=== PATIENT | female | born 1960 | race African-American/Black ===

== ENCOUNTER 2017-03-07 11:12 | Emergency (ER) | payer MEDICAID ==
[~2017-03-07] VITALS: Ht 162.6 cm; Wt 122.7 kg
[~2017-03-07 11:12] MED LIST: AZIT250T9 PO; PRED20 PO; [UNRECOGNIZED DRUG - REMARK] IH
[2017-03-07] MEDS ORDERED: HYDROCODONE/ACETAMINOPHEN 5-325 MG TABLET PO ONE (15:00)
[2017-03-07 15:30] VITALS: BP 138/85
== END 2017-03-07 16:08 | disposition home or self-care (01) ==
LOC: EMS 11:13
DX: M25.562 Pain in left knee (principal); M79.662 Pain in left lower leg; M79.89 Other specified soft tissue disorders; M19.90 Unspecified osteoarthritis, unspecified site; J45.909 Unspecified asthma, uncomplicated; F17.210 Nicotine dependence, cigarettes, uncomplicated; Z88.8 Allergy status to other drugs, medicaments and biological substances; Z91.040 Latex allergy status
CPT/HCPCS: 29505; 93971; 99284

== ENCOUNTER 2017-04-29 10:01 | Emergency (ER) | payer MEDICAID ==
[~2017-04-29] VITALS: Ht 162.6 cm; Wt 120.0 kg
[2017-04-29] MEDS ORDERED: ALBU8HFA IH (10:35)
[2017-04-29 12:49] LABS: INFLUENZA TYPE A NEGATIVE FOR TYPE A (NEGATIVE)
[2017-04-29 12:50] LABS: INFLUENZA TYPE B NEGATIVE FOR TYPE B (NEGATIVE)
[2017-04-29 14:05] VITALS: BP 127/70
== END 2017-04-29 14:07 | disposition home or self-care (01) ==
LOC: EMS 10:09
DX: J06.9 Acute upper respiratory infection, unspecified (principal); M79.1 Myalgia; J45.909 Unspecified asthma, uncomplicated; F17.210 Nicotine dependence, cigarettes, uncomplicated; Z88.8 Allergy status to other drugs, medicaments and biological substances; Z91.040 Latex allergy status
CPT/HCPCS: 87804; 99284

== ENCOUNTER 2017-05-30 16:04 | Emergency (ER) | payer MEDICAID ==
[~2017-05-30] VITALS: Ht 162.6 cm; Wt 117.0 kg
[~2017-05-30 16:04] MED LIST changes: +ALBU8HFA IH; -AZIT250T9 PO; -[UNRECOGNIZED DRUG - REMARK] IH
[2017-05-30] MEDS ORDERED: ACETAMINOPHEN 500 MG TABLET PO ONE (16:30)
[2017-05-30 16:55] LABS: APPEARANCE,URINE TURBID (CLEAR); BILIRUBIN,URINE NEGATIVE (NEGATIVE); GLUCOSE, URINE (UA) NEGATIVE (NEGATIVE); KETONES,URINE NEGATIVE (NEGATIVE); LEUKOCYTE ESTERASE ,URINE TRACE (NEGATIVE); NITRATE,URINE NEGATIVE (NEGATIVE); OCCULT BLOOD,URINE LARGE (NEGATIVE); PH,URINE 5.5 (5.0-8.0); PROTEIN,URINE SEE CONFIRM (NEGATIVE)
[2017-05-30 17:01] LABS: BASOPHILS % (AUTO) 0.6 % (0.0-2.0); EOSINOPHILS % (AUTO) 0 % (1.0-6.0); HEMATOCRIT 31.9 % (36-46); HEMOGLOBIN 10.8 g/dL (12.0-16.0); LYMPHOCYTES # (AUTO) 1.8 K/uL (1.0-4.8); LYMPHOCYTES % (AUTO) 34.6 % (22.0-44.0); MEAN CORPUSCULAR HGB CONC 33.9 G/dL (31.0-37.0); MEAN CORPUSCULAR VOLUME 91 fL (80-100); MONOCYTES # (AUTO) 0.7 K/uL (0.1-1.0); MONOCYTES % (AUTO) 13.4 % (2.0-9.0); NEUTROPHILS # (AUTO) 2.6 K/uL (1.8-7.7); NEUTROPHILS % (AUTO) 51.4 % (40.0-70.0); PLATELET COUNT (AUTO) 181 K/uL (150-450); RED BLOOD CELL COUNT(AUTO) 3.49 MIL/uL (4.00-5.20); RED CELL DISTRIBUTION WIDTH 13.3 % (11.5-14.5)
[2017-05-30 17:12] LABS: ANION GAP 8 mmol/L (8-16); CALCIUM, TOTAL 8.5 mg/dL (8.8-10.5); CARBON DIOXIDE 30 mmol/L (22-29); CHLORIDE 96 mmol/L (98-107); CREATININE 2.83 mg/dL (0.60-1.30); GLOMERULAR FILTR. RATE CALC 21 mL/min (>60); GLUCOSE,RANDOM 83 mg/dL (70-110); POTASSIUM 4.2 mmol/L (3.5-5.1); SODIUM SERUM 134 mmol/L (136-145); UREA NITROGEN, BLOOD 30 mg/dL (7-18)
[2017-05-30 17:19] LABS: ALANINE AMINOTRANSFERASE 65 U/L (12-78); ALBUMIN 2.8 g/dL (3.4-5.0); ALKALINE PHOSPHATASE 66 U/L (46-116); ASPARTATE AMINOTRANSFERASE 61 U/L (15-37); BILIRUBIN,TOTAL 0.5 mg/dL (0.1-1.0); TOTAL PROTEIN, SERUM 9.3 g/dL (6.4-8.2)
[2017-05-30 17:27] LABS: INFLUENZA TYPE A NEGATIVE FOR TYPE A (NEGATIVE); INFLUENZA TYPE B NEGATIVE FOR TYPE B (NEGATIVE)
[2017-05-30] MEDS ORDERED: ALBUTEROL SULFATE 2.5 MG/0.5 ML NEB SOLUTION NEB ONE (17:30)
[2017-05-30] MEDS ORDERED: IPRATROPIUM BROMIDE 0.5 MG/2.5 ML NEB SOLUTION NEB ONE (17:30)
[2017-05-30] MEDS ORDERED: SODIUM CHLORIDE 0.9% 1,000 ML IV ONE (17:30)
[2017-05-30] MEDS ORDERED: 0.9% SODIUM CHLORIDE 5 ML NEB SOLUTION NEB ONE (17:34)
[2017-05-30 17:39] LABS: SULFOSALICYLIC ACID,URINE 3+ (Negative)
[2017-05-30 17:41] LABS: BACTERIA,URINE Few /HPF (None Seen); SQUAMOUS EPITHELIAL CELL,UR Few /LPF (None Seen)
[2017-05-30 17:43] LABS: AMORPHOUS SEDIMENT,UR Moderate /LPF (None Seen)
[2017-05-30] MEDS ORDERED: AZITHROMYCIN 250 MG TABLET PO ONE (17:45)
[2017-05-30] MEDS ORDERED: CefTRIAXone SODIUM 1 GM in DEXTROSE 5%-WATER 10 ML IV ONE (17:45)
[2017-05-30 18:25] LABS: B-TYPE NATRIURETIC PEPTIDE < 5 pg/mL (0-100)
[2017-05-30] MEDS ORDERED: ALBUTEROL SULFATE HFA 90 MCG/PUFF 8 GM INHALER IH ONE (19:45)
[2017-05-30 19:54] VITALS: BP 115/63
== END 2017-05-30 20:13 | disposition left against medical advice (07) ==
LOC: EMS 16:07
DX: J18.9 Pneumonia, unspecified organism (principal); E86.0 Dehydration; R19.7 Diarrhea, unspecified; N19 Unspecified kidney failure; J45.909 Unspecified asthma, uncomplicated; F17.210 Nicotine dependence, cigarettes, uncomplicated; Z91.040 Latex allergy status; Z88.8 Allergy status to other drugs, medicaments and biological substances
CPT/HCPCS: 36415; 71046; 80053; 81001; 83880; 85025; 87040; 87086; 87804; 94640; 96365; 99285; 99406; J0696; J7030; J7060; J7613; J3535

== ENCOUNTER → 2021-05-02 11:22 | Emergency (ER) | payer MEDICAID, OTHER ==
[~2021-05-02 11:22] MED LIST changes: +PRED-554 PO; -PRED20 PO
== END | disposition left against medical advice (07) ==
LOC: EMS 11:22
DX: M79.602 Pain in left arm (principal); Z53.21 Procedure and treatment not carried out due to patient leaving prior to being seen by health care provider

== ENCOUNTER 2021-11-23 07:17 | Inpatient (IN) | payer OTHER ==
[~2021-11-23] VITALS: Ht 165.1 cm; Wt 88.8 kg
[~2021-11-23 07:17] MED LIST changes: -ALBU8HFA IH; +EPOE10003 SQ; +GUAIF10 GT; +IPRA3AMP24 NEB; +IPRA4AER IH; +LACT1CAP81 PO; +LANS30CA56 GT; +MIDO5TAB29 GT; +PANT-31 GT; -PRED-554 PO; +SERT-162 GT; +THIA100T80 GT
[2021-11-23] MEDS ORDERED: DEXTROSE 50%-WATER 25 GM/50 ML SYRINGE IVP ONE ×3 (07:45→11:00)
[2021-11-23 07:51] LABS: GLUCOSE,POINT OF CARE 47 MG/DL (70-110)
[2021-11-23 08:19] LABS: BASOPHILS % (AUTO) 0.8 % (0.0-2.0); EOSINOPHILS % (AUTO) 3.4 % (1.0-6.0); HEMATOCRIT 25.3 % (36-46); HEMOGLOBIN 7.9 g/dL (12.0-16.0); LYMPHOCYTES # (AUTO) 1.3 K/uL (1.0-4.8); LYMPHOCYTES % (AUTO) 10.5 % (22.0-44.0); MEAN CORPUSCULAR HEMOGLOBIN 29.6 pg (26.0-34.0); MEAN CORPUSCULAR HGB CONC 31.3 G/dL (31.0-37.0); MEAN CORPUSCULAR VOLUME 95 fL (80-100); MONOCYTES % (AUTO) 15.5 % (2.0-9.0); NEUTROPHILS # (AUTO) 8.8 K/uL (1.8-7.7); NEUTROPHILS % (AUTO) 69.8 % (40.0-70.0); PLATELET COUNT (AUTO) 338 K/uL (150-450); RED BLOOD CELL COUNT(AUTO) 2.68 MIL/uL (4.00-5.20)
[2021-11-23 08:31] LABS: CALCIUM, TOTAL 7.5 mg/dL (8.8-10.5); CREATININE 1.75 mg/dL (0.60-1.30); POTASSIUM 3.4 mmol/L (3.5-5.1)
[2021-11-23 08:36] LABS: GLUCOSE,POINT OF CARE 114 MG/DL (70-110)
[2021-11-23 08:38] LABS: INR 1.1 (0.9-1.1); LACTIC ACID 1.1 mmol/L (0.4-2.0); PROTHROMBIN TIME 11.9 SEC (9.4-11.6)
[2021-11-23 08:45] LABS: ALBUMIN 2.1 g/dL (3.4-5.0); BILIRUBIN,TOTAL 0.7 mg/dL (0.1-1.0); TOTAL PROTEIN, SERUM 6.5 g/dL (6.4-8.2)
[2021-11-23] MEDS ORDERED: 0.9% SODIUM CHLORIDE 10 ML SYRINGE IVP PRN (09:15)
[2021-11-23] MEDS ORDERED: ONDANSETRON HCL 4 MG/2 ML VIAL IVP PRN (09:15)
[2021-11-23 09:39] LABS: COVID AG,FIA SOURCE NASAL SWAB
[2021-11-23] MEDS ORDERED: ONDA-104 PO (09:41)
[2021-11-23] MEDS ORDERED: ACET325S20 PR (09:43)
[2021-11-23] MEDS ORDERED: BISA10SU11 PR (09:44)
[2021-11-23] MEDS ORDERED: DEXTROSE 10%-WATER 1,000 ML IV ONE (11:00)
[2021-11-23 11:06] LABS: GLUCOSE,POINT OF CARE 49 MG/DL (70-110)
[2021-11-23] MEDS ORDERED: RINGERS SOLUTION,LACTATED 1,000 ML IV ONE (11:56)
[2021-11-23] MEDS ORDERED: PROPOFOL 1% 20 ML VIAL IVP ONE (12:00)
[2021-11-23] MEDS ORDERED: LIDOCAINE/PF 2% 5 ML VIAL IM ONE (12:00)
[2021-11-23] MEDS ORDERED: ONDANSETRON HCL 4 MG/2 ML VIAL ONE (12:42)
[2021-11-23 13:31] VITALS: BP 139/68
[2021-11-23 13:31] LABS: GLUCOMETER DEV NAME(LOC) SDS.; GLUCOSE,POINT OF CARE 75 MG/DL (70-110)
[2021-11-23] MEDS ORDERED: ACETAMINOPHEN 325 MG TABLET PO PRN (14:00)
[2021-11-23] MEDS ORDERED: MAGNESIUM HYDROXIDE SUSPENSION 30 ML UDCUP PO PRN (14:00)
[2021-11-23] MEDS ORDERED: BISACODYL 10 MG RECTAL RECTAL SUPPOSITORY PR PRN (14:00)
[2021-11-23 15:12] VITALS: BP 139/69
[2021-11-23] MEDS ORDERED: INFLUENZA VIRUS VACCINE QVS 2022-23 (6MO+)/PF 60 MCG/0.5 ML SYRINGE IM. ONE (15:15)
[2021-11-23 15:38] VITALS: BP 121/81
[2021-11-23] MEDS: HEPARIN SODIUM,PORCINE 5,000 UNITS/ML VIAL SQ SCH ×2 (15:58→23:57)
[2021-11-23] MEDS: DEXTROSE 5%-0.45% SODIUM CHL 1,000 ML IV SCH (16:43)
[2021-11-23] MEDS: DOCUSATE SODIUM 100 MG CAPSULE PO SCH (21:00)
[2021-11-24] VITALS (9 sets, daily range): BP systolic 95–122; BP diastolic 47–82
[2021-11-24] MEDS: ONDANSETRON HCL 4 MG/2 ML VIAL IVP PRN (02:02)
[2021-11-24] MEDS: MORPHINE SULFATE 2 MG/ML SYRINGE IVP PRN (02:15)
[2021-11-24] MEDS: DEXTROSE 5%-0.45% SODIUM CHL 1,000 ML IV SCH (08:35)
[2021-11-24] MEDS: PANTOPRAZOLE SODIUM 40 MG DR TABLET PO SCH (08:35)
[2021-11-24] MEDS: DOCUSATE SODIUM 100 MG CAPSULE PO SCH ×3 (08:35→20:12)
[2021-11-24] MEDS: SERTRALINE HCL 100 MG TABLET PO SCH ×2 (08:35→08:48)
[2021-11-24] MEDS: HEPARIN SODIUM,PORCINE 5,000 UNITS/ML VIAL SQ SCH ×3 (08:35→23:51)
[2021-11-24] MEDS: THIAMINE 100 MG TABLET PO SCH (08:35)
[2021-11-24] MEDS ORDERED: 0.9% SODIUM CHLORIDE 5 ML NEB SOLUTION NEB ONE (10:45)
[2021-11-24] MEDS: ALBUTEROL SULFATE 2.5 MG/0.5 ML NEB SOLUTION NEB PRN (10:55)
[2021-11-24] MEDS ORDERED: VANCOMYCIN HCL 1.25 GM in DEXTROSE 5%-WATER 250 ML IV ONE (15:00)
[2021-11-24] MEDS ORDERED: SODIUM CHLORIDE 0.9% 1,000 ML ONE (15:43)
[2021-11-24] MEDS: POTASSIUM CHL 10 MEQ/WATER 50 ML IV SCH ×2 (16:06→17:18)
[2021-11-24] MEDS: EPOETIN ALFA 10,000 UNITS/ML 2 ML VIAL SQ SCH (16:08)
[2021-11-24] MEDS ORDERED: HEPARIN SODIUM,PORCINE 1,000 UNITS/ML VIAL IVP ONE (16:54)
[2021-11-24] MEDS: ALBUTEROL SULFATE HFA 90 MCG/PUFF 8 GM INHALER IH PRN ×2 (17:30→23:50)
[2021-11-24] MEDS ORDERED: DiphenhydrAMINE HCL 50 MG/ML VIAL IVP ONE (18:45)
[2021-11-25] MEDS: ALBUTEROL SULFATE 2.5 MG/0.5 ML NEB SOLUTION NEB PRN (01:23)
[2021-11-25 05:44] VITALS: BP 117/65
[2021-11-25 06:32] LABS: CALCIUM, TOTAL 6.9 mg/dL (8.8-10.5); CREATININE 1.67 mg/dL (0.60-1.30); PHOSPHORUS 1.9 mg/dL (2.5-4.9)
[2021-11-25] MEDS ORDERED: VANCOMYCIN HCL 1.25 GM in DEXTROSE 5%-WATER 250 ML IV SCH (08:00)
[2021-11-25 08:23] VITALS: BP 87/56
[2021-11-25 08:38] VITALS: BP 100/59
[2021-11-25] MEDS: PANTOPRAZOLE SODIUM 40 MG DR TABLET PO SCH (09:00)
[2021-11-25] MEDS: DOCUSATE SODIUM 100 MG CAPSULE PO SCH ×2 (09:00→20:44)
[2021-11-25] MEDS: SERTRALINE HCL 100 MG TABLET PO SCH (09:00)
[2021-11-25] MEDS: THIAMINE 100 MG TABLET PO SCH (09:00)
[2021-11-25] MEDS: HEPARIN SODIUM,PORCINE 5,000 UNITS/ML VIAL SQ SCH ×3 (09:05→23:51)
[2021-11-25] MEDS ORDERED: SODIUM CHLORIDE 0.9% 500 ML IV ONE (09:10)
[2021-11-25] MEDS: DEXTROSE 5%-WATER 1,000 ML IV SCH (11:33)
[2021-11-25] MEDS: CALCITRIOL 1 MCG/ML AMP IVP SCH (11:33)
[2021-11-25] MEDS ORDERED: DEXTROSE 50%-WATER 25 GM/50 ML SYRINGE IVP ONE (14:30)
[2021-11-25] MEDS ORDERED: MIDAZOLAM HCL 2 MG/2 ML VIAL ONE (14:33)
[2021-11-25] MEDS ORDERED: LIDOCAINE/PF 1% 30 ML VIAL ONE (14:33)
[2021-11-25] MEDS ORDERED: FentaNYL CITRATE PF 100 MCG/2 ML VIAL ONE (14:33)
[2021-11-25] MEDS ORDERED: IOHEXOL 300 MG/ML 50 ML VIAL ONE (14:34)
[2021-11-25] MEDS ORDERED: IOHEXOL 300 MG/ML 100 ML VIAL ONE (14:35)
[2021-11-25 15:41] LABS: GLUCOMETER DEV NAME(LOC) CATH.; GLUCOSE,POINT OF CARE 106 MG/DL (70-110)
[2021-11-25 15:50] LABS: GLUCOMETER DEV NAME(LOC) 6N.1; GLUCOSE,POINT OF CARE 65 MG/DL (70-110)
[2021-11-25 16:43] VITALS: BP 144/85
[2021-11-25] MEDS ORDERED: FentaNYL CITRATE PF 100 MCG/2 ML VIAL IVP ONE ×2 (16:45)
[2021-11-25] MEDS ORDERED: MIDAZOLAM HCL 2 MG/2 ML VIAL IVP ONE ×2 (16:45)
[2021-11-25 20:45] VITALS: BP 103/64
[2021-11-26] VITALS (12 sets, daily range): BP systolic 88–119; BP diastolic 41–94
[2021-11-26] MEDS: MORPHINE SULFATE 2 MG/ML SYRINGE IVP PRN (05:09)
[2021-11-26 06:52] LABS: BASOPHILS % (AUTO) 2.1 % (0.0-2.0); EOSINOPHILS % (AUTO) 1.9 % (1.0-6.0); HEMATOCRIT 23.8 % (36-46); HEMOGLOBIN 7.5 g/dL (12.0-16.0); LYMPHOCYTES # (AUTO) 2.2 K/uL (1.0-4.8); LYMPHOCYTES % (AUTO) 16.1 % (22.0-44.0); MEAN CORPUSCULAR HEMOGLOBIN 29.6 pg (26.0-34.0); MEAN CORPUSCULAR HGB CONC 31.5 G/dL (31.0-37.0); MEAN CORPUSCULAR VOLUME 94 fL (80-100); MONOCYTES # (AUTO) 1.8 K/uL (0.1-1.0); MONOCYTES % (AUTO) 13.4 % (2.0-9.0); NEUTROPHILS # (AUTO) 8.9 K/uL (1.8-7.7); NEUTROPHILS % (AUTO) 66.5 % (40.0-70.0); PLATELET COUNT (AUTO) 285 K/uL (150-450); RED BLOOD CELL COUNT(AUTO) 2.52 MIL/uL (4.00-5.20); RED CELL DISTRIBUTION WIDTH 21.7 % (11.5-14.5)
[2021-11-26 06:55] LABS: CALCIUM, TOTAL 6.6 mg/dL (8.8-10.5); CREATININE 2.32 mg/dL (0.60-1.30); PHOSPHORUS 1.8 mg/dL (2.5-4.9); POTASSIUM 3.8 mmol/L (3.5-5.1)
[2021-11-26] MEDS ORDERED: VANCOMYCIN 1GM/WATER(PEG/NADA) 200 ML IV PRN (07:45)
[2021-11-26] MEDS: DEXTROSE 5%-WATER 1,000 ML IV SCH (08:39)
[2021-11-26] MEDS: CALCITRIOL 1 MCG/ML AMP IVP SCH (08:40)
[2021-11-26] MEDS: DOCUSATE SODIUM 100 MG CAPSULE PO SCH ×2 (08:40→20:05)
[2021-11-26] MEDS: HEPARIN SODIUM,PORCINE 5,000 UNITS/ML VIAL SQ SCH ×3 (08:40→23:43)
[2021-11-26] MEDS: THIAMINE 100 MG TABLET PO SCH (08:41)
[2021-11-26] MEDS: SERTRALINE HCL 100 MG TABLET PO SCH (08:41)
[2021-11-26] MEDS: HYDROCODONE/ACETAMINOPHEN 5-325 MG TABLET PO PRN ×2 (08:41→12:45)
[2021-11-26] MEDS: PANTOPRAZOLE SODIUM 40 MG DR TABLET PO SCH (08:41)
[2021-11-26] MEDS: EPOETIN ALFA 10,000 UNITS/ML 2 ML VIAL SQ SCH (08:44)
[2021-11-26] MEDS ORDERED: SODIUM CHLORIDE 0.9% 2,000 ML ONE (09:32)
[2021-11-26] MEDS ORDERED: HEPARIN SODIUM,PORCINE 1,000 UNITS/ML VIAL IVCATH ONE ×2 (12:45)
[2021-11-26] MEDS ORDERED: DiphenhydrAMINE HCL 50 MG/ML VIAL IVP PRN (12:45)
[2021-11-26] MEDS ORDERED: HEPARIN SODIUM,PORCINE 1,000 UNITS/ML VIAL IVP ONE (21:21)
[2021-11-26] MEDS ORDERED: DiphenhydrAMINE HCL 50 MG/ML VIAL IM ONE (21:21)
[2021-11-27] MEDS: MORPHINE SULFATE 2 MG/ML SYRINGE IVP PRN ×3 (01:59→23:11)
[2021-11-27 04:00] VITALS: BP 96/46
[2021-11-27 08:00] VITALS: BP 128/45
[2021-11-27] MEDS: DEXTROSE 5%-WATER 1,000 ML IV SCH (08:49)
[2021-11-27] MEDS: DOCUSATE SODIUM 100 MG CAPSULE PO SCH ×2 (08:51→21:00)
[2021-11-27] MEDS: PANTOPRAZOLE SODIUM 40 MG DR TABLET PO SCH (08:51)
[2021-11-27] MEDS: HEPARIN SODIUM,PORCINE 5,000 UNITS/ML VIAL SQ SCH ×3 (08:51→23:20)
[2021-11-27] MEDS: CALCITRIOL 1 MCG/ML AMP IVP SCH (08:51)
[2021-11-27] MEDS: SERTRALINE HCL 100 MG TABLET PO SCH (08:52)
[2021-11-27] MEDS: THIAMINE 100 MG TABLET PO SCH (08:52)
[2021-11-27] MEDS: HYDROCODONE/ACETAMINOPHEN 5-325 MG TABLET PO PRN (08:53)
[2021-11-27 12:15] LABS: CALCIUM, TOTAL 6.7 mg/dL (8.8-10.5); CREATININE 1.95 mg/dL (0.60-1.30); POTASSIUM 3.4 mmol/L (3.5-5.1); VANCOMYCIN,RANDOM 19.6 mcg/mL (25.0-50.0)
[2021-11-27] MEDS ORDERED: VANCOMYCIN 1GM/WATER(PEG/NADA) 200 ML IV ONE (13:00)
[2021-11-27] MEDS ORDERED: VANCOMYCIN HCL 1 GM/D5% WATER 200 ML IV ONE (13:00)
[2021-11-27 15:21] VITALS: BP 106/62
[2021-11-27 19:23] VITALS: BP 125/59
[2021-11-27] MEDS ORDERED: WATER FOR IRRIGATION,STERILE 1000 ML SOLUTION BOTTLE ONE (23:02)
[2021-11-28] MEDS: ZOLPIDEM TARTRATE 5 MG TABLET PO PRN ×2 (02:18→23:47)
[2021-11-28] MEDS: ALBUTEROL SULFATE HFA 90 MCG/PUFF 8 GM INHALER IH PRN (02:18)
[2021-11-28] MEDS: ALBUTEROL SULFATE 2.5 MG/0.5 ML NEB SOLUTION NEB PRN (02:45)
[2021-11-28] MEDS: DEXTROSE 5%-WATER 1,000 ML IV SCH ×2 (04:02→22:39)
[2021-11-28 04:37] VITALS: BP 115/64
[2021-11-28 07:30] VITALS: BP 113/64
[2021-11-28] MEDS: PANTOPRAZOLE SODIUM 40 MG DR TABLET PO SCH (08:46)
[2021-11-28] MEDS: THIAMINE 100 MG TABLET PO SCH (08:47)
[2021-11-28] MEDS: DOCUSATE SODIUM 100 MG CAPSULE PO SCH ×2 (08:47→20:01)
[2021-11-28] MEDS: SERTRALINE HCL 100 MG TABLET PO SCH (08:47)
[2021-11-28] MEDS: HEPARIN SODIUM,PORCINE 5,000 UNITS/ML VIAL SQ SCH ×3 (08:47→23:47)
[2021-11-28] MEDS: VITAMIN B COMP/VIT C/FOLIC ACID CAPSULE PO SCH (08:47)
[2021-11-28] MEDS: CALCITRIOL 1 MCG/ML AMP IVP SCH (08:48)
[2021-11-28 12:52] LABS: BASOPHILS % (AUTO) 1.6 % (0.0-2.0); EOSINOPHILS % (AUTO) 4.7 % (1.0-6.0); HEMATOCRIT 24.1 % (36-46); HEMOGLOBIN 7.6 g/dL (12.0-16.0); LYMPHOCYTES % (AUTO) 14.6 % (22.0-44.0); MEAN CORPUSCULAR HEMOGLOBIN 29.5 pg (26.0-34.0); MEAN CORPUSCULAR HGB CONC 31.4 G/dL (31.0-37.0); MEAN CORPUSCULAR VOLUME 94 fL (80-100); MONOCYTES % (AUTO) 10.4 % (2.0-9.0); NEUTROPHILS # (AUTO) 9.3 K/uL (1.8-7.7); NEUTROPHILS % (AUTO) 68.7 % (40.0-70.0); PLATELET COUNT (AUTO) 306 K/uL (150-450); RED BLOOD CELL COUNT(AUTO) 2.57 MIL/uL (4.00-5.20); RED CELL DISTRIBUTION WIDTH 21.6 % (11.5-14.5)
[2021-11-28 12:53] LABS: MONOCYTES # (AUTO) 1.4 K/uL (0.1-1.0)
[2021-11-28 13:02] LABS: CALCIUM, TOTAL 6.5 mg/dL (8.8-10.5); CREATININE 2.53 mg/dL (0.60-1.30); POTASSIUM 3.4 mmol/L (3.5-5.1)
[2021-11-28 13:07] LABS: ALBUMIN 1.8 g/dL (3.4-5.0); BILIRUBIN,TOTAL 0.5 mg/dL (0.1-1.0); TOTAL PROTEIN, SERUM 5.9 g/dL (6.4-8.2)
[2021-11-28] MEDS: MORPHINE SULFATE 2 MG/ML SYRINGE IVP PRN (14:51)
[2021-11-28 15:04] VITALS: BP 105/56
[2021-11-28 18:46] LABS: GLUCOMETER DEV NAME(LOC) 6N.2B; GLUCOSE,POINT OF CARE 96 MG/DL (70-110)
[2021-11-28] MEDS: ONDANSETRON HCL 4 MG/2 ML VIAL IVP PRN (19:41)
[2021-11-28 19:42] VITALS: BP 120/73
[2021-11-28] MEDS: HYDROCODONE/ACETAMINOPHEN 5-325 MG TABLET PO PRN (23:49)
[2021-11-29] VITALS (13 sets, daily range): BP systolic 106–142; BP diastolic 64–79
[2021-11-29 07:20] LABS: CALCIUM, TOTAL 6.6 mg/dL (8.8-10.5); CREATININE 2.89 mg/dL (0.60-1.30); POTASSIUM 3.1 mmol/L (3.5-5.1); VANCOMYCIN,RANDOM 24.9 mcg/mL (25.0-50.0)
[2021-11-29] MEDS: EPOETIN ALFA 10,000 UNITS/ML 2 ML VIAL SQ SCH (09:09)
[2021-11-29] MEDS: CALCITRIOL 1 MCG/ML AMP IVP SCH (09:10)
[2021-11-29] MEDS: DOCUSATE SODIUM 100 MG CAPSULE PO SCH ×2 (09:10→20:34)
[2021-11-29] MEDS: PANTOPRAZOLE SODIUM 40 MG DR TABLET PO SCH (09:10)
[2021-11-29] MEDS: HEPARIN SODIUM,PORCINE 5,000 UNITS/ML VIAL SQ SCH ×3 (09:10→23:23)
[2021-11-29] MEDS: VITAMIN B COMP/VIT C/FOLIC ACID CAPSULE PO SCH (09:11)
[2021-11-29] MEDS: SERTRALINE HCL 100 MG TABLET PO SCH (09:11)
[2021-11-29] MEDS: THIAMINE 100 MG TABLET PO SCH (09:11)
[2021-11-29] MEDS ORDERED: SODIUM CHLORIDE 0.9% 2,000 ML ONE (09:40)
[2021-11-29] MEDS ORDERED: HEPARIN SODIUM,PORCINE 1,000 UNITS/ML VIAL IVCATH ONE ×2 (12:15)
[2021-11-29] MEDS: HYDROCODONE/ACETAMINOPHEN 5-325 MG TABLET PO PRN (16:26)
[2021-11-29] MEDS ORDERED: DiphenhydrAMINE HCL 25 MG CAPSULE PO ONE (20:15)
[2021-11-29] MEDS: ALBUTEROL SULFATE 2.5 MG/0.5 ML NEB SOLUTION NEB PRN (21:05)
[2021-11-29] MEDS: DEXTROSE 5%-WATER 1,000 ML IV SCH (23:23)
[2021-11-29] MEDS: MORPHINE SULFATE 2 MG/ML SYRINGE IVP PRN (23:37)
[2021-11-30 01:15] VITALS: BP 125/68
[2021-11-30] MEDS: ONDANSETRON HCL 4 MG/2 ML VIAL IVP PRN ×2 (01:19→18:27)
[2021-11-30 04:46] VITALS: BP 128/71
[2021-11-30] MEDS ORDERED: VANCOMYCIN HCL 750 MG in DEXTROSE 5%-WATER 250 ML IV ONE (08:00)
[2021-11-30 08:14] LABS: CALCIUM, TOTAL 7.6 mg/dL (8.8-10.5); CREATININE 1.99 mg/dL (0.60-1.30); POTASSIUM 3.2 mmol/L (3.5-5.1)
[2021-11-30 08:18] VITALS: BP 100/55
[2021-11-30] MEDS ORDERED: SODIUM CHLORIDE 0.9% 500 ML IV ONE (08:31)
[2021-11-30] MEDS: HEPARIN SODIUM,PORCINE 5,000 UNITS/ML VIAL SQ SCH ×2 (08:44→16:15)
[2021-11-30] MEDS: PANTOPRAZOLE SODIUM 40 MG DR TABLET PO SCH (08:44)
[2021-11-30] MEDS: VITAMIN B COMP/VIT C/FOLIC ACID CAPSULE PO SCH (08:45)
[2021-11-30] MEDS: SERTRALINE HCL 100 MG TABLET PO SCH (08:45)
[2021-11-30] MEDS: THIAMINE 100 MG TABLET PO SCH (08:45)
[2021-11-30] MEDS: DOCUSATE SODIUM 100 MG CAPSULE PO SCH ×2 (08:45→20:27)
[2021-11-30] MEDS: CALCITRIOL 1 MCG/ML AMP IVP SCH (08:46)
[2021-11-30] MEDS: DEXTROSE 5%-WATER 1,000 ML IV SCH (11:58)
[2021-11-30 17:42] VITALS: BP 94/59
[2021-11-30] MEDS ORDERED: POTASSIUM CHLORIDE 20 MEQ ER TABLET PO PRN (18:45)
[2021-11-30] MEDS ORDERED: POTASSIUM CHL 10 MEQ/WATER 50 ML IV PRN (18:45)
[2021-11-30 19:08] VITALS: BP 108/55
[2021-11-30] MEDS: MORPHINE SULFATE 2 MG/ML SYRINGE IVP PRN (21:28)
[2021-12-01] VITALS (12 sets, daily range): BP systolic 89–115; BP diastolic 52–65
[2021-12-01] MEDS: DEXTROSE 5%-WATER 1,000 ML IV SCH (02:58)
[2021-12-01 06:04] LABS: BASOPHILS % (AUTO) 1.5 % (0.0-2.0); EOSINOPHILS % (AUTO) 5.6 % (1.0-6.0); HEMATOCRIT 22.8 % (36-46); HEMOGLOBIN 7.4 g/dL (12.0-16.0); LYMPHOCYTES # (AUTO) 1.8 K/uL (1.0-4.8); LYMPHOCYTES % (AUTO) 17.3 % (22.0-44.0); MEAN CORPUSCULAR HEMOGLOBIN 30.5 pg (26.0-34.0); MEAN CORPUSCULAR HGB CONC 32.6 G/dL (31.0-37.0); MEAN CORPUSCULAR VOLUME 94 fL (80-100); MONOCYTES # (AUTO) 1.3 K/uL (0.1-1.0); MONOCYTES % (AUTO) 11.8 % (2.0-9.0); NEUTROPHILS # (AUTO) 6.8 K/uL (1.8-7.7); NEUTROPHILS % (AUTO) 63.8 % (40.0-70.0); PLATELET COUNT (AUTO) 263 K/uL (150-450); RED BLOOD CELL COUNT(AUTO) 2.43 MIL/uL (4.00-5.20); RED CELL DISTRIBUTION WIDTH 22.2 % (11.5-14.5)
[2021-12-01 06:18] LABS: CREATININE 2.5 mg/dL (0.60-1.30); MAGNESIUM 1.4 mg/dL (1.80-2.40); PHOSPHORUS 1.6 mg/dL (2.5-4.9)
[2021-12-01 06:23] LABS: CALCIUM, TOTAL 6.8 mg/dL (8.8-10.5)
[2021-12-01 06:25] LABS: POTASSIUM 2.9 mmol/L (3.5-5.1)
[2021-12-01] MEDS: HEPARIN SODIUM,PORCINE 5,000 UNITS/ML VIAL SQ SCH ×4 (08:00→23:39)
[2021-12-01] MEDS: DOCUSATE SODIUM 100 MG CAPSULE PO SCH ×2 (08:27→21:00)
[2021-12-01] MEDS: CALCITRIOL 1 MCG/ML AMP IVP SCH (08:33)
[2021-12-01] MEDS: THIAMINE 100 MG TABLET PO SCH ×2 (08:37→08:46)
[2021-12-01] MEDS: PANTOPRAZOLE SODIUM 40 MG DR TABLET PO SCH ×2 (08:37→08:46)
[2021-12-01] MEDS: SERTRALINE HCL 100 MG TABLET PO SCH ×2 (08:37→08:46)
[2021-12-01] MEDS: VITAMIN B COMP/VIT C/FOLIC ACID CAPSULE PO SCH ×2 (08:37→08:46)
[2021-12-01] MEDS ORDERED: SODIUM CHLORIDE 0.9% 1,000 ML ONE (09:00)
[2021-12-01] MEDS: ALBUTEROL SULFATE 2.5 MG/0.5 ML NEB SOLUTION NEB PRN ×2 (11:23→21:53)
[2021-12-01] MEDS: MORPHINE SULFATE 2 MG/ML SYRINGE IVP PRN ×2 (13:26→23:20)
[2021-12-01] MEDS: EPOETIN ALFA 10,000 UNITS/ML 2 ML VIAL SQ SCH (15:29)
[2021-12-01] MEDS: ONDANSETRON HCL 4 MG/2 ML VIAL IVP PRN ×2 (15:34→23:19)
[2021-12-01] MEDS: ZOLPIDEM TARTRATE 5 MG TABLET PO PRN (19:58)
[2021-12-02] MEDS: DEXTROSE 5%-WATER 1,000 ML IV SCH (03:46)
[2021-12-02] MEDS: MORPHINE SULFATE 2 MG/ML SYRINGE IVP PRN ×2 (03:53→19:13)
[2021-12-02 04:35] VITALS: BP 106/67
[2021-12-02 05:46] LABS: CALCIUM, TOTAL 6.9 mg/dL (8.8-10.5); CREATININE 2.14 mg/dL (0.60-1.30); MAGNESIUM 1.3 mg/dL (1.80-2.40); PHOSPHORUS 1.6 mg/dL (2.5-4.9); POTASSIUM 3.2 mmol/L (3.5-5.1); VANCOMYCIN,RANDOM 22.7 mcg/mL (25.0-50.0)
[2021-12-02 07:54] VITALS: BP 121/62
[2021-12-02] MEDS: HEPARIN SODIUM,PORCINE 5,000 UNITS/ML VIAL SQ SCH ×3 (08:48→23:51)
[2021-12-02] MEDS: DOCUSATE SODIUM 100 MG CAPSULE PO SCH ×2 (08:49→20:05)
[2021-12-02] MEDS: VITAMIN B COMP/VIT C/FOLIC ACID CAPSULE PO SCH (08:49)
[2021-12-02] MEDS: PANTOPRAZOLE SODIUM 40 MG DR TABLET PO SCH (08:49)
[2021-12-02] MEDS: CALCITRIOL 1 MCG/ML AMP IVP SCH (08:49)
[2021-12-02] MEDS: THIAMINE 100 MG TABLET PO SCH (08:49)
[2021-12-02] MEDS: SERTRALINE HCL 100 MG TABLET PO SCH (08:49)
[2021-12-02] MEDS ORDERED: MAGNESIUM OXIDE 400 MG TABLET PO ONE (10:00)
[2021-12-02] MEDS: ONDANSETRON HCL 4 MG/2 ML VIAL IVP PRN ×2 (10:53→17:56)
[2021-12-02 15:24] VITALS: BP 93/54
[2021-12-02] MEDS ORDERED: SODIUM PHOS,M-BASIC-D-BASIC 10 MEQ in DEXTROSE 5%-WATER 50 ML IV ONE (17:15)
[2021-12-02] MEDS ORDERED: SODIUM CL IRRIG SOLN BOTTLE 250 ML IRRIG ONE (19:52)
[2021-12-02 20:00] VITALS: BP 108/70
[2021-12-03] VITALS (13 sets, daily range): BP systolic 90–197; BP diastolic 36–149
[2021-12-03] MEDS: MORPHINE SULFATE 2 MG/ML SYRINGE IVP PRN (01:39)
[2021-12-03] MEDS: DEXTROSE 5%-WATER 1,000 ML IV SCH (01:39)
[2021-12-03] MEDS: ZOLPIDEM TARTRATE 5 MG TABLET PO PRN ×2 (01:40→20:16)
[2021-12-03] MEDS: ONDANSETRON HCL 4 MG/2 ML VIAL IVP PRN ×3 (01:43→20:16)
[2021-12-03] MEDS ORDERED: VANCOMYCIN HCL 500 MG in DEXTROSE 5%-WATER 100 ML IV ONE (08:00)
[2021-12-03] MEDS: PANTOPRAZOLE SODIUM 40 MG DR TABLET PO SCH ×2 (09:00→09:25)
[2021-12-03] MEDS: SERTRALINE HCL 100 MG TABLET PO SCH (09:25)
[2021-12-03] MEDS: THIAMINE 100 MG TABLET PO SCH (09:25)
[2021-12-03] MEDS: VITAMIN B COMP/VIT C/FOLIC ACID CAPSULE PO SCH (09:25)
[2021-12-03] MEDS: HEPARIN SODIUM,PORCINE 5,000 UNITS/ML VIAL SQ SCH ×2 (09:25→16:00)
[2021-12-03] MEDS: EPOETIN ALFA 10,000 UNITS/ML 2 ML VIAL SQ SCH (09:27)
[2021-12-03] MEDS ORDERED: SODIUM CHLORIDE 0.9% 2,000 ML ONE (09:49)
[2021-12-03] MEDS: DOCUSATE SODIUM 100 MG CAPSULE PO SCH ×2 (13:09→20:20)
[2021-12-03] MEDS: HYDROCODONE/ACETAMINOPHEN 5-325 MG TABLET PO PRN (13:09)
[2021-12-03] MEDS: ALBUTEROL SULFATE 2.5 MG/0.5 ML NEB SOLUTION NEB PRN ×2 (15:12→19:53)
[2021-12-03 15:14] LABS: BASOPHILS % (AUTO) 2.1 % (0.0-2.0); EOSINOPHILS % (AUTO) 4.7 % (1.0-6.0); HEMATOCRIT 22.3 % (36-46); HEMOGLOBIN 7.2 g/dL (12.0-16.0); LYMPHOCYTES # (AUTO) 1.6 K/uL (1.0-4.8); LYMPHOCYTES % (AUTO) 18.1 % (22.0-44.0); MEAN CORPUSCULAR HEMOGLOBIN 30.2 pg (26.0-34.0); MEAN CORPUSCULAR HGB CONC 32.3 G/dL (31.0-37.0); MEAN CORPUSCULAR VOLUME 94 fL (80-100); MONOCYTES # (AUTO) 0.7 K/uL (0.1-1.0); MONOCYTES % (AUTO) 8.1 % (2.0-9.0); NEUTROPHILS # (AUTO) 5.7 K/uL (1.8-7.7); PLATELET COUNT (AUTO) 247 K/uL (150-450); RED BLOOD CELL COUNT(AUTO) 2.38 MIL/uL (4.00-5.20); RED CELL DISTRIBUTION WIDTH 22.2 % (11.5-14.5)
[2021-12-03 15:29] LABS: ALBUMIN 1.8 g/dL (3.4-5.0); BILIRUBIN,TOTAL 0.4 mg/dL (0.1-1.0); CALCIUM, TOTAL 7.3 mg/dL (8.8-10.5); CREATININE 2.5 mg/dL (0.60-1.30); POTASSIUM 3.3 mmol/L (3.5-5.1); TOTAL PROTEIN, SERUM 5.8 g/dL (6.4-8.2)
[2021-12-03] MEDS ORDERED: HEPARIN SODIUM,PORCINE 1,000 UNITS/ML VIAL IVCATH ONE ×2 (17:00)
[2021-12-03] MEDS ORDERED: HEPARIN SODIUM,PORCINE 1,000 UNITS/ML VIAL IVP ONE (19:29)
[2021-12-03] MEDS ORDERED: 0.9% SODIUM CHLORIDE 5 ML NEB SOLUTION NEB ONE (19:50)
[2021-12-04] MEDS: HEPARIN SODIUM,PORCINE 5,000 UNITS/ML VIAL SQ SCH ×3 (01:38→15:45)
[2021-12-04] MEDS: DEXTROSE 5%-WATER 1,000 ML IV SCH (01:54)
[2021-12-04 04:31] VITALS: BP 105/69
[2021-12-04] MEDS: MORPHINE SULFATE 2 MG/ML SYRINGE IVP PRN (05:40)
[2021-12-04] MEDS: ONDANSETRON HCL 4 MG/2 ML VIAL IVP PRN ×2 (06:11→15:54)
[2021-12-04 08:09] VITALS: BP 108/58
[2021-12-04] MEDS: DOCUSATE SODIUM 100 MG CAPSULE PO SCH ×2 (08:46→21:00)
[2021-12-04] MEDS: THIAMINE 100 MG TABLET PO SCH (08:46)
[2021-12-04] MEDS: VITAMIN B COMP/VIT C/FOLIC ACID CAPSULE PO SCH (08:46)
[2021-12-04] MEDS: SERTRALINE HCL 100 MG TABLET PO SCH (08:50)
[2021-12-04] MEDS: PANTOPRAZOLE SODIUM 40 MG DR TABLET PO SCH (08:51)
[2021-12-04] MEDS ORDERED: CALCITRIOL 1 MCG/ML AMP IVP SCH (09:00)
[2021-12-04] MEDS: HYDROCODONE/ACETAMINOPHEN 5-325 MG TABLET PO PRN ×2 (12:21→21:41)
[2021-12-04 15:39] LABS: CALCIUM, TOTAL 8.1 mg/dL (8.8-10.5); CREATININE 2.23 mg/dL (0.60-1.30); PHOSPHORUS 1.8 mg/dL (2.5-4.9); POTASSIUM 3.4 mmol/L (3.5-5.1)
[2021-12-04] MEDS: DOXERCALCIFEROL 4 MCG/2 ML VIAL IVP SCH (15:44)
[2021-12-04] MEDS ORDERED: SODIUM CHLORIDE 0.9% 500 ML IV ONE (15:52)
[2021-12-04 16:19] VITALS: BP 105/50
[2021-12-04 19:01] LABS: GLUCOMETER DEV NAME(LOC) 6N.1; GLUCOSE,POINT OF CARE 95 MG/DL (70-110)
[2021-12-04] MEDS ORDERED: SODIUM CHLORIDE 0.9% 100 ML ONE (19:14)
[2021-12-04] MEDS ORDERED: IOHEXOL 300 MG/ML 100 ML VIAL ONE (19:14)
[2021-12-04 19:37] VITALS: BP 116/60
[2021-12-04] MEDS: ZOLPIDEM TARTRATE 5 MG TABLET PO PRN (21:42)
[2021-12-04 22:46] LABS: GLUCOMETER DEV NAME(LOC) 6N.1; GLUCOSE,POINT OF CARE 85 MG/DL (70-110)
[2021-12-05] MEDS: HEPARIN SODIUM,PORCINE 5,000 UNITS/ML VIAL SQ SCH ×3 (01:07→16:36)
[2021-12-05 04:58] VITALS: BP 114/56
[2021-12-05] MEDS: MORPHINE SULFATE 2 MG/ML SYRINGE IVP PRN ×3 (05:31→20:48)
[2021-12-05 08:00] VITALS: BP 130/79
[2021-12-05] MEDS: PANTOPRAZOLE SODIUM 40 MG DR TABLET PO SCH (09:00)
[2021-12-05] MEDS: DOCUSATE SODIUM 100 MG CAPSULE PO SCH (09:00)
[2021-12-05] MEDS: SERTRALINE HCL 100 MG TABLET PO SCH (09:00)
[2021-12-05] MEDS: THIAMINE 100 MG TABLET PO SCH (09:00)
[2021-12-05] MEDS: VITAMIN B COMP/VIT C/FOLIC ACID CAPSULE PO SCH (09:00)
[2021-12-05] MEDS: DOXERCALCIFEROL 4 MCG/2 ML VIAL IVP SCH (09:09)
[2021-12-05] MEDS ORDERED: MAGNESIUM HYDROXIDE SUSPENSION 30 ML UDCUP PEG PRN (10:27)
[2021-12-05] MEDS ORDERED: HYDROCODONE/ACETAMINOPHEN 5-325 MG TABLET PEG PRN (10:30)
[2021-12-05] MEDS ORDERED: ACETAMINOPHEN 650 MG/20.3 ML SOLUTION UDCUP PEG PRN (10:30)
[2021-12-05 14:31] LABS: GLUCOMETER DEV NAME(LOC) 6N.1; GLUCOSE,POINT OF CARE 70 MG/DL (70-110)
[2021-12-05 14:31] LABS: GLUCOMETER DEV NAME(LOC) 6N.1; GLUCOSE,POINT OF CARE 72 MG/DL (70-110)
[2021-12-05 14:31] LABS: GLUCOMETER DEV NAME(LOC) 6N.1; GLUCOSE,POINT OF CARE 84 MG/DL (70-110)
[2021-12-05 15:14] LABS: BASOPHILS % (AUTO) 1.7 % (0.0-2.0); EOSINOPHILS % (AUTO) 3.7 % (1.0-6.0); HEMATOCRIT 22.7 % (36-46); HEMOGLOBIN 7.3 g/dL (12.0-16.0); LYMPHOCYTES # (AUTO) 1.9 K/uL (1.0-4.8); LYMPHOCYTES % (AUTO) 15.9 % (22.0-44.0); MEAN CORPUSCULAR HEMOGLOBIN 30.2 pg (26.0-34.0); MEAN CORPUSCULAR VOLUME 95 fL (80-100); MONOCYTES # (AUTO) 1.3 K/uL (0.1-1.0); MONOCYTES % (AUTO) 10.7 % (2.0-9.0); PLATELET COUNT (AUTO) 315 K/uL (150-450); RED BLOOD CELL COUNT(AUTO) 2.41 MIL/uL (4.00-5.20); RED CELL DISTRIBUTION WIDTH 22.6 % (11.5-14.5)
[2021-12-05 15:35] LABS: ALBUMIN 1.8 g/dL (3.4-5.0); BILIRUBIN,TOTAL 0.4 mg/dL (0.1-1.0); CALCIUM, TOTAL 7.5 mg/dL (8.8-10.5); CREATININE 3.11 mg/dL (0.60-1.30); PHOSPHORUS 2.5 mg/dL (2.5-4.9); TOTAL PROTEIN, SERUM 5.8 g/dL (6.4-8.2); VANCOMYCIN,RANDOM 19.3 mcg/mL (25.0-50.0)
[2021-12-05 15:54] LABS: INR 1.1 (0.9-1.1); PROTHROMBIN TIME 11.5 SEC (9.4-11.6)
[2021-12-05 16:00] VITALS: BP 120/74
[2021-12-05] MEDS: ONDANSETRON HCL 4 MG/2 ML VIAL IVP PRN (16:32)
[2021-12-05 20:35] VITALS: BP 118/69
[2021-12-05] MEDS: METOCLOPRAMIDE HCL 10 MG/10 ML SOLUTION ORAL.SYG PEG SCH (20:45)
[2021-12-05] MEDS: DOCUSATE SODIUM 100 MG/10 ML LIQUID UDCUP PEG SCH (21:00)
[2021-12-05] MEDS ORDERED: DEXTROSE 5%-0.45% SODIUM CHL 1,000 ML IV ONE (21:15)
[2021-12-06] VITALS (12 sets, daily range): BP systolic 95–132; BP diastolic 47–77
[2021-12-06] MEDS: HEPARIN SODIUM,PORCINE 5,000 UNITS/ML VIAL SQ SCH ×3 (00:22→17:12)
[2021-12-06] MEDS: MORPHINE SULFATE 2 MG/ML SYRINGE IVP PRN (00:49)
[2021-12-06] MEDS: ZOLPIDEM TARTRATE 5 MG TABLET PEG PRN ×2 (01:36→21:10)
[2021-12-06 03:06] LABS: GLUCOMETER DEV NAME(LOC) 6N.1; GLUCOSE,POINT OF CARE 67 MG/DL (70-110)
[2021-12-06] MEDS: THIAMINE 100 MG TABLET PEG SCH (09:08)
[2021-12-06] MEDS: VITAMIN B COMP/VIT C/FOLIC ACID CAPSULE PO SCH (09:09)
[2021-12-06] MEDS: DOCUSATE SODIUM 100 MG/10 ML LIQUID UDCUP PEG SCH ×2 (09:09→21:00)
[2021-12-06] MEDS: METOCLOPRAMIDE HCL 10 MG/10 ML SOLUTION ORAL.SYG PEG SCH ×2 (09:09→20:08)
[2021-12-06] MEDS: DOXERCALCIFEROL 4 MCG/2 ML VIAL IVP SCH (09:09)
[2021-12-06] MEDS: SERTRALINE HCL 100 MG TABLET PEG SCH (09:09)
[2021-12-06] MEDS: EPOETIN ALFA 10,000 UNITS/ML 2 ML VIAL SQ SCH (09:10)
[2021-12-06] MEDS: LANSOPRAZOLE 30 MG SOLUBLE TABLET PEG SCH (09:10)
[2021-12-06] MEDS ORDERED: DEXTROSE 5%-0.45% SODIUM CHL 500 ML IV ONE (11:30)
[2021-12-06] MEDS ORDERED: SODIUM CHLORIDE 0.9% 2,000 ML ONE (12:30)
[2021-12-06 12:42] LABS: GLUCOMETER DEV NAME(LOC) 6N.2B; GLUCOSE,POINT OF CARE 66 MG/DL (70-110)
[2021-12-06] MEDS ORDERED: HEPARIN SODIUM,PORCINE 1,000 UNITS/ML VIAL IVCATH ONE ×2 (15:00)
[2021-12-06] MEDS ORDERED: VANCOMYCIN HCL 750 MG in DEXTROSE 5%-WATER 250 ML IV ONE (16:00)
[2021-12-06] MEDS: ONDANSETRON HCL 4 MG/2 ML VIAL IVP PRN (17:35)
[2021-12-07] MEDS: HEPARIN SODIUM,PORCINE 5,000 UNITS/ML VIAL SQ SCH ×4 (00:33→23:41)
[2021-12-07 04:34] VITALS: BP 114/65
[2021-12-07] MEDS: VITAMIN B COMP/VIT C/FOLIC ACID CAPSULE PO SCH (08:51)
[2021-12-07] MEDS: METOCLOPRAMIDE HCL 10 MG/10 ML SOLUTION ORAL.SYG PEG SCH ×2 (08:51→20:43)
[2021-12-07] MEDS: THIAMINE 100 MG TABLET PEG SCH (08:51)
[2021-12-07] MEDS: SERTRALINE HCL 100 MG TABLET PEG SCH (08:51)
[2021-12-07] MEDS: DOCUSATE SODIUM 100 MG/10 ML LIQUID UDCUP PEG SCH ×2 (08:52→20:43)
[2021-12-07] MEDS: SCOPOLAMINE HYDROBROMIDE 1 MG/72 HOUR PATCH TD SCH (08:52)
[2021-12-07] MEDS: DOXERCALCIFEROL 4 MCG/2 ML VIAL IVP SCH (08:52)
[2021-12-07] MEDS: LANSOPRAZOLE 30 MG SOLUBLE TABLET PEG SCH (08:52)
[2021-12-07 10:28] VITALS: BP 114/71
[2021-12-07] MEDS ORDERED: HEPARIN SODIUM,PORCINE 1,000 UNITS/ML VIAL IVP ONE (11:14)
[2021-12-07] MEDS ORDERED: DEXTROSE 5%-0.45% SODIUM CHL 500 ML IV ONE ×2 (12:15→18:30)
[2021-12-07] MEDS: ONDANSETRON HCL 4 MG/2 ML VIAL IVP PRN (13:08)
[2021-12-07 15:36] VITALS: BP 116/59
[2021-12-07 17:31] LABS: GLUCOMETER DEV NAME(LOC) 6N.2B; GLUCOSE,POINT OF CARE 64 MG/DL (70-110)
[2021-12-07] MEDS ORDERED: SODIUM CHLORIDE 0.9% 1,000 ML ONE (18:41)
[2021-12-07 19:49] VITALS: BP 106/65
[2021-12-07 20:07] LABS: GLUCOMETER DEV NAME(LOC) 6N.2B; GLUCOSE,POINT OF CARE 64 MG/DL (70-110)
[2021-12-07] MEDS ORDERED: WATER FOR IRRIGATION,STERILE 1000 ML SOLUTION BOTTLE ONE (20:40)
[2021-12-07] MEDS: MORPHINE SULFATE 2 MG/ML SYRINGE IVP PRN (23:41)
[2021-12-07] MEDS: ZOLPIDEM TARTRATE 5 MG TABLET PEG PRN (23:41)
[2021-12-08] VITALS (15 sets, daily range): BP systolic 94–134; BP diastolic 51–78
[2021-12-08 00:16] LABS: GLUCOMETER DEV NAME(LOC) 6N.2B; GLUCOSE,POINT OF CARE 87 MG/DL (70-110)
[2021-12-08] MEDS ORDERED: DEXTROSE 5%-0.45% SODIUM CHL 1,000 ML IV SCH (07:00)
[2021-12-08] MEDS ORDERED: LIDOCAINE 2% VISCOUS 15 ML SOLUTION UDCUP ONE (07:06)
[2021-12-08 07:15] LABS: GLUCOMETER DEV NAME(LOC) 6N.2B; GLUCOSE,POINT OF CARE 74 MG/DL (70-110)
[2021-12-08] MEDS ORDERED: MIDAZOLAM HCL 2 MG/2 ML VIAL ONE (07:57)
[2021-12-08] MEDS ORDERED: FentaNYL CITRATE PF 100 MCG/2 ML VIAL ONE (07:57)
[2021-12-08] MEDS: HEPARIN SODIUM,PORCINE 5,000 UNITS/ML VIAL SQ SCH ×3 (08:00→23:58)
[2021-12-08] MEDS ORDERED: SODIUM CHLORIDE 0.9% 500 ML IV ONE (08:15)
[2021-12-08] MEDS ORDERED: BENZOCAINE 20% 50 MCG/SPRAY 57 GM ONE (08:17)
[2021-12-08] MEDS ORDERED: MIDAZOLAM HCL 2 MG/2 ML VIAL IVP ONE ×3 (08:30)
[2021-12-08] MEDS ORDERED: BENZOCAINE 20% 50 MCG/SPRAY 57 GM TP ONE (08:30)
[2021-12-08] MEDS ORDERED: FentaNYL CITRATE PF 100 MCG/2 ML VIAL IVP ONE ×3 (08:30)
[2021-12-08] MEDS ORDERED: SODIUM CHLORIDE 0.9% 2,000 ML ONE (09:05)
[2021-12-08] MEDS ORDERED: HEPARIN SODIUM,PORCINE 1,000 UNITS/ML 10 ML VIAL IVP ONE (12:00)
[2021-12-08] MEDS ORDERED: HEPARIN SODIUM,PORCINE 1,000 UNITS/ML VIAL IVCATH ONE ×2 (12:45)
[2021-12-08 13:21] LABS: GLUCOMETER DEV NAME(LOC) 6N.1; GLUCOSE,POINT OF CARE 51 MG/DL (70-110)
[2021-12-08] MEDS ORDERED: DEXTROSE 5%-0.45% SODIUM CHL 500 ML IV ONE (13:45)
[2021-12-08] MEDS: METOCLOPRAMIDE HCL 10 MG/10 ML SOLUTION ORAL.SYG PEG SCH ×2 (13:46→20:56)
[2021-12-08] MEDS: SERTRALINE HCL 100 MG TABLET PEG SCH (13:46)
[2021-12-08] MEDS: THIAMINE 100 MG TABLET PEG SCH (13:46)
[2021-12-08] MEDS: LANSOPRAZOLE 30 MG SOLUBLE TABLET PEG SCH (13:47)
[2021-12-08] MEDS: VITAMIN B COMP/VIT C/FOLIC ACID CAPSULE PO SCH (13:47)
[2021-12-08] MEDS: DOCUSATE SODIUM 100 MG/10 ML LIQUID UDCUP PEG SCH ×2 (13:47→20:57)
[2021-12-08] MEDS: DOXERCALCIFEROL 4 MCG/2 ML VIAL IVP SCH (13:47)
[2021-12-08] MEDS: EPOETIN ALFA 10,000 UNITS/ML 2 ML VIAL SQ SCH (13:49)
[2021-12-08 22:21] LABS: GLUCOMETER DEV NAME(LOC) 6N.2B; GLUCOSE,POINT OF CARE 63 MG/DL (70-110)
[2021-12-08] MEDS ORDERED: SODIUM CHLORIDE 77 MEQ in DEXTROSE 10%-WATER 1,000 ML IV ONE (23:00)
[2021-12-08] MEDS ORDERED: WATER FOR IRRIGATION,STERILE 1000 ML SOLUTION BOTTLE ONE (23:45)
[2021-12-08] MEDS: ZOLPIDEM TARTRATE 5 MG TABLET PEG PRN (23:58)
[2021-12-09 00:56] LABS: GLUCOMETER DEV NAME(LOC) 6N.1; GLUCOSE,POINT OF CARE 68 MG/DL (70-110)
[2021-12-09 03:38] VITALS: BP 100/54
[2021-12-09 07:26] VITALS: BP 109/51
[2021-12-09 07:56] LABS: GLUCOMETER DEV NAME(LOC) 6N.1; GLUCOSE,POINT OF CARE 79 MG/DL (70-110)
[2021-12-09] MEDS: METOCLOPRAMIDE HCL 10 MG/10 ML SOLUTION ORAL.SYG PEG SCH ×2 (09:50→20:43)
[2021-12-09] MEDS: DOCUSATE SODIUM 100 MG/10 ML LIQUID UDCUP PEG SCH ×3 (09:50→20:51)
[2021-12-09] MEDS: THIAMINE 100 MG TABLET PEG SCH (09:51)
[2021-12-09] MEDS: VITAMIN B COMP/VIT C/FOLIC ACID CAPSULE PO SCH (09:51)
[2021-12-09] MEDS: DOXERCALCIFEROL 4 MCG/2 ML VIAL IVP SCH (09:51)
[2021-12-09] MEDS: LANSOPRAZOLE 30 MG SOLUBLE TABLET PEG SCH (09:53)
[2021-12-09] MEDS: HEPARIN SODIUM,PORCINE 5,000 UNITS/ML VIAL SQ SCH ×2 (09:53→17:14)
[2021-12-09] MEDS: SERTRALINE HCL 100 MG TABLET PEG SCH (10:13)
[2021-12-09] MEDS: ONDANSETRON HCL 4 MG/2 ML VIAL IVP PRN (10:39)
[2021-12-09 14:14] LABS: CALCIUM, TOTAL 8.2 mg/dL (8.8-10.5); CREATININE 3.18 mg/dL (0.60-1.30); VANCOMYCIN,RANDOM 19.2 mcg/mL (25.0-50.0)
[2021-12-09] MEDS ORDERED: POTASSIUM CHLORIDE 10% 40 MEQ/30 ML LIQUID UDCUP NG ONE (15:15)
[2021-12-09] MEDS ORDERED: DOCU-119 PO (15:36)
[2021-12-09] MEDS ORDERED: DOXE4VIA IVP (15:39)
[2021-12-09] MEDS ORDERED: ACET-784 PO (15:45)
[2021-12-09] MEDS ORDERED: ALBU8HFA IH (15:50)
[2021-12-09] MEDS ORDERED: ALBU4TAB4 PO (15:50)
[2021-12-09 17:38] VITALS: BP 107/54
[2021-12-09 18:16] LABS: GLUCOMETER DEV NAME(LOC) 6N.2B; GLUCOSE,POINT OF CARE 102 MG/DL (70-110)
[2021-12-09 18:17] LABS: GLUCOMETER DEV NAME(LOC) 6N.1; GLUCOSE,POINT OF CARE 89 MG/DL (70-110)
[2021-12-09 19:48] VITALS: BP 110/57
[2021-12-10] VITALS (13 sets, daily range): BP systolic 94–118; BP diastolic 37–78
[2021-12-10] MEDS: ZOLPIDEM TARTRATE 5 MG TABLET PEG PRN (00:01)
[2021-12-10] MEDS: HEPARIN SODIUM,PORCINE 5,000 UNITS/ML VIAL SQ SCH ×3 (00:16→16:34)
[2021-12-10 08:01] LABS: GLUCOMETER DEV NAME(LOC) 6N.2B; GLUCOSE,POINT OF CARE 78 MG/DL (70-110)
[2021-12-10 08:01] LABS: GLUCOMETER DEV NAME(LOC) 6N.2B; GLUCOSE,POINT OF CARE 74 MG/DL (70-110)
[2021-12-10] MEDS: LANSOPRAZOLE 30 MG SOLUBLE TABLET PEG SCH (09:50)
[2021-12-10] MEDS: SCOPOLAMINE HYDROBROMIDE 1 MG/72 HOUR PATCH TD SCH ×2 (09:51→10:20)
[2021-12-10] MEDS: VITAMIN B COMP/VIT C/FOLIC ACID CAPSULE PO SCH (09:52)
[2021-12-10] MEDS: DOXERCALCIFEROL 4 MCG/2 ML VIAL IVP SCH (09:52)
[2021-12-10] MEDS: METOCLOPRAMIDE HCL 10 MG/10 ML SOLUTION ORAL.SYG PEG SCH ×2 (09:53→20:21)
[2021-12-10] MEDS: THIAMINE 100 MG TABLET PEG SCH (09:53)
[2021-12-10] MEDS: SERTRALINE HCL 100 MG TABLET PEG SCH (09:53)
[2021-12-10] MEDS: EPOETIN ALFA 10,000 UNITS/ML 2 ML VIAL SQ SCH (09:57)
[2021-12-10] MEDS ORDERED: SODIUM CHLORIDE 0.9% 2,000 ML ONE (10:54)
[2021-12-10 13:31] LABS: GLUCOMETER DEV NAME(LOC) 6N.1; GLUCOSE,POINT OF CARE 85 MG/DL (70-110)
[2021-12-10] MEDS ORDERED: HEPARIN SODIUM,PORCINE 1,000 UNITS/ML VIAL IVCATH ONE ×4 (14:15)
[2021-12-10] MEDS ORDERED: HEPARIN SODIUM,PORCINE 1,000 UNITS/ML VIAL IVP ONE (16:31)
[2021-12-10] MEDS ORDERED: VANCOMYCIN HCL 750 MG in DEXTROSE 5%-WATER 250 ML IV ONE ×2 (17:00)
[2021-12-10] MEDS ORDERED: SODIUM CHLORIDE 0.9% 250 ML IV ONE (17:12)
[2021-12-10] MEDS: DOCUSATE SODIUM 100 MG/10 ML LIQUID UDCUP PEG SCH (20:20)
[2021-12-10 21:46] LABS: GLUCOMETER DEV NAME(LOC) 6N.2B; GLUCOSE,POINT OF CARE 99 MG/DL (70-110)
[2021-12-10 23:21] LABS: GLUCOMETER DEV NAME(LOC) 6N.1; GLUCOSE,POINT OF CARE 83 MG/DL (70-110)
[2021-12-11] MEDS: HEPARIN SODIUM,PORCINE 5,000 UNITS/ML VIAL SQ SCH ×4 (00:10→23:34)
[2021-12-11 02:31] LABS: GLUCOMETER DEV NAME(LOC) 6N.1; GLUCOSE,POINT OF CARE 77 MG/DL (70-110)
[2021-12-11 06:00] VITALS: BP 112/64
[2021-12-11 07:35] LABS: GLUCOMETER DEV NAME(LOC) 6N.2B; GLUCOSE,POINT OF CARE 91 MG/DL (70-110)
[2021-12-11 07:53] VITALS: BP 93/50
[2021-12-11] MEDS: DOCUSATE SODIUM 100 MG/10 ML LIQUID UDCUP PEG SCH ×2 (08:35→20:19)
[2021-12-11] MEDS: LANSOPRAZOLE 30 MG SOLUBLE TABLET PEG SCH (08:36)
[2021-12-11] MEDS: THIAMINE 100 MG TABLET PEG SCH (08:36)
[2021-12-11] MEDS: VITAMIN B COMP/VIT C/FOLIC ACID CAPSULE PO SCH (08:36)
[2021-12-11] MEDS: SERTRALINE HCL 100 MG TABLET PEG SCH (08:36)
[2021-12-11] MEDS: METOCLOPRAMIDE HCL 10 MG/10 ML SOLUTION ORAL.SYG PEG SCH ×2 (08:37→20:23)
[2021-12-11] MEDS: DOXERCALCIFEROL 4 MCG/2 ML VIAL IVP SCH (08:38)
[2021-12-11 12:36] LABS: GLUCOMETER DEV NAME(LOC) 6N.2B; GLUCOSE,POINT OF CARE 99 MG/DL (70-110)
[2021-12-11 15:19] VITALS: BP 102/55
[2021-12-11 19:36] LABS: GLUCOMETER DEV NAME(LOC) 6N.1; GLUCOSE,POINT OF CARE 87 MG/DL (70-110)
[2021-12-11 19:44] VITALS: BP 103/57
[2021-12-12 00:26] LABS: GLUCOMETER DEV NAME(LOC) 6N.2B; GLUCOSE,POINT OF CARE 79 MG/DL (70-110)
[2021-12-12 05:15] VITALS: BP 104/53
[2021-12-12 09:11] LABS: GLUCOMETER DEV NAME(LOC) 6N.2B; GLUCOSE,POINT OF CARE 90 MG/DL (70-110)
[2021-12-12] MEDS: DOCUSATE SODIUM 100 MG/10 ML LIQUID UDCUP PEG SCH ×2 (09:12→20:50)
[2021-12-12] MEDS: VITAMIN B COMP/VIT C/FOLIC ACID CAPSULE PO SCH (09:13)
[2021-12-12] MEDS: SERTRALINE HCL 100 MG TABLET PEG SCH (09:13)
[2021-12-12] MEDS: METOCLOPRAMIDE HCL 10 MG/10 ML SOLUTION ORAL.SYG PEG SCH ×2 (09:13→20:49)
[2021-12-12] MEDS: THIAMINE 100 MG TABLET PEG SCH (09:13)
[2021-12-12] MEDS: DOXERCALCIFEROL 4 MCG/2 ML VIAL IVP SCH (09:14)
[2021-12-12] MEDS: LANSOPRAZOLE 30 MG SOLUBLE TABLET PEG SCH (09:14)
[2021-12-12] MEDS: HEPARIN SODIUM,PORCINE 5,000 UNITS/ML VIAL SQ SCH ×2 (09:17→17:13)
[2021-12-12 14:21] LABS: GLUCOMETER DEV NAME(LOC) 6N.1; GLUCOSE,POINT OF CARE 107 MG/DL (70-110)
[2021-12-12 16:00] VITALS: BP 100/64
[2021-12-12 16:21] LABS: CREATININE 3.77 mg/dL (0.60-1.30); PHOSPHORUS 1.5 mg/dL (2.5-4.9); POTASSIUM 4.1 mmol/L (3.5-5.1)
[2021-12-12] MEDS ORDERED: MAGNESIUM OXIDE 400 MG TABLET PO ONE (17:00)
[2021-12-12] MEDS ORDERED: SODIUM PHOS,M-BASIC-D-BASIC 10 MEQ in DEXTROSE 5%-WATER 50 ML IV ONE (17:30)
[2021-12-12 19:55] VITALS: BP 100/62
[2021-12-12 22:31] LABS: GLUCOMETER DEV NAME(LOC) 6N.1; GLUCOSE,POINT OF CARE 83 MG/DL (70-110)
[2021-12-12] MEDS: ZOLPIDEM TARTRATE 5 MG TABLET PEG PRN (23:26)
[2021-12-13] VITALS (13 sets, daily range): BP systolic 85–108; BP diastolic 54–71
[2021-12-13] MEDS: HEPARIN SODIUM,PORCINE 5,000 UNITS/ML VIAL SQ SCH ×4 (00:16→23:58)
[2021-12-13 05:56] LABS: GLUCOMETER DEV NAME(LOC) 6N.2B; GLUCOSE,POINT OF CARE 89 MG/DL (70-110)
[2021-12-13 06:56] LABS: GLUCOMETER DEV NAME(LOC) 6N.1; GLUCOSE,POINT OF CARE 91 MG/DL (70-110)
[2021-12-13] MEDS: VITAMIN B COMP/VIT C/FOLIC ACID CAPSULE PO SCH (08:44)
[2021-12-13] MEDS: THIAMINE 100 MG TABLET PEG SCH (08:44)
[2021-12-13] MEDS: SERTRALINE HCL 100 MG TABLET PEG SCH (08:44)
[2021-12-13] MEDS: DOXERCALCIFEROL 4 MCG/2 ML VIAL IVP SCH (08:45)
[2021-12-13] MEDS: METOCLOPRAMIDE HCL 10 MG/10 ML SOLUTION ORAL.SYG PEG SCH ×2 (08:48→22:01)
[2021-12-13] MEDS: DOCUSATE SODIUM 100 MG/10 ML LIQUID UDCUP PEG SCH ×2 (08:48→21:00)
[2021-12-13] MEDS: LANSOPRAZOLE 30 MG SOLUBLE TABLET PEG SCH (08:49)
[2021-12-13] MEDS: SCOPOLAMINE HYDROBROMIDE 1 MG/72 HOUR PATCH TD SCH (08:50)
[2021-12-13] MEDS: EPOETIN ALFA 10,000 UNITS/ML 2 ML VIAL SQ SCH (08:52)
[2021-12-13] MEDS ORDERED: SODIUM CHLORIDE 0.9% 2,000 ML ONE (10:31)
[2021-12-13 11:12] LABS: CREATININE 4.38 mg/dL (0.60-1.30); PHOSPHORUS 1.7 mg/dL (2.5-4.9); POTASSIUM 3.8 mmol/L (3.5-5.1)
[2021-12-13] MEDS ORDERED: HEPARIN SODIUM,PORCINE 1,000 UNITS/ML VIAL IVCATH ONE ×2 (14:15)
[2021-12-13] MEDS: MORPHINE SULFATE 2 MG/ML SYRINGE IVP PRN (15:36)
[2021-12-13] MEDS ORDERED: SODIUM PHOS,M-BASIC-D-BASIC 10 MEQ in DEXTROSE 5%-WATER 50 ML IV ONE (17:15)
[2021-12-13 18:01] LABS: GLUCOMETER DEV NAME(LOC) 6N.1; GLUCOSE,POINT OF CARE 71 MG/DL (70-110)
[2021-12-13] MEDS: ZOLPIDEM TARTRATE 5 MG TABLET PEG PRN (22:00)
[2021-12-14 03:21] LABS: GLUCOMETER DEV NAME(LOC) 6N.2B; GLUCOSE,POINT OF CARE 102 MG/DL (70-110)
[2021-12-14 04:27] VITALS: BP 102/50
[2021-12-14 06:17] LABS: GLUCOMETER DEV NAME(LOC) 6N.1; GLUCOSE,POINT OF CARE 91 MG/DL (70-110)
[2021-12-14 07:37] VITALS: BP 104/61
[2021-12-14] MEDS: VITAMIN B COMP/VIT C/FOLIC ACID CAPSULE PO SCH (09:00)
[2021-12-14] MEDS: LANSOPRAZOLE 30 MG SOLUBLE TABLET PEG SCH (09:00)
[2021-12-14] MEDS: SERTRALINE HCL 100 MG TABLET PEG SCH (09:00)
[2021-12-14] MEDS: DOCUSATE SODIUM 100 MG/10 ML LIQUID UDCUP PEG SCH ×2 (09:02→21:00)
[2021-12-14] MEDS: HEPARIN SODIUM,PORCINE 5,000 UNITS/ML VIAL SQ SCH ×4 (09:02→23:48)
[2021-12-14] MEDS: THIAMINE 100 MG TABLET PEG SCH (09:02)
[2021-12-14] MEDS: METOCLOPRAMIDE HCL 10 MG/10 ML SOLUTION ORAL.SYG PEG SCH ×2 (09:03→20:31)
[2021-12-14] MEDS: DOXERCALCIFEROL 4 MCG/2 ML VIAL IVP SCH (09:03)
[2021-12-14 12:16] LABS: GLUCOMETER DEV NAME(LOC) 6N.1; GLUCOSE,POINT OF CARE 92 MG/DL (70-110)
[2021-12-14 16:16] VITALS: BP 117/77
[2021-12-14 16:39] LABS: CALCIUM, TOTAL 7.7 mg/dL (8.8-10.5); CREATININE 2.66 mg/dL (0.60-1.30); MAGNESIUM 1.7 mg/dL (1.80-2.40); PHOSPHORUS 1.9 mg/dL (2.5-4.9); POTASSIUM 4.1 mmol/L (3.5-5.1)
[2021-12-14 17:22] LABS: GLUCOMETER DEV NAME(LOC) 6N.2B; GLUCOSE,POINT OF CARE 88 MG/DL (70-110)
[2021-12-14] MEDS: ZOLPIDEM TARTRATE 5 MG TABLET PEG PRN (20:32)
[2021-12-14 21:46] LABS: GLUCOMETER DEV NAME(LOC) 6N.2B; GLUCOSE,POINT OF CARE 92 MG/DL (70-110)
[2021-12-15 04:15] VITALS: BP 99/55
[2021-12-15 06:26] LABS: GLUCOMETER DEV NAME(LOC) 6N.2B; GLUCOSE,POINT OF CARE 87 MG/DL (70-110)
[2021-12-15] MEDS: EPOETIN ALFA 10,000 UNITS/ML 2 ML VIAL SQ SCH (08:23)
[2021-12-15] MEDS: HEPARIN SODIUM,PORCINE 5,000 UNITS/ML VIAL SQ SCH ×3 (08:23→23:32)
[2021-12-15] MEDS: VITAMIN B COMP/VIT C/FOLIC ACID CAPSULE PO SCH (08:23)
[2021-12-15] MEDS: THIAMINE 100 MG TABLET PEG SCH (08:23)
[2021-12-15] MEDS: SERTRALINE HCL 100 MG TABLET PEG SCH (08:23)
[2021-12-15] MEDS: DOCUSATE SODIUM 100 MG/10 ML LIQUID UDCUP PEG SCH ×2 (08:24→21:00)
[2021-12-15] MEDS: DOXERCALCIFEROL 4 MCG/2 ML VIAL IVP SCH (08:24)
[2021-12-15] MEDS: LANSOPRAZOLE 30 MG SOLUBLE TABLET PEG SCH (08:24)
[2021-12-15] MEDS: METOCLOPRAMIDE HCL 10 MG/10 ML SOLUTION ORAL.SYG PEG SCH ×2 (08:24→20:45)
[2021-12-15 15:09] VITALS: BP 95/61
[2021-12-15 15:31] LABS: GLUCOMETER DEV NAME(LOC) 6N.2B; GLUCOSE,POINT OF CARE 82 MG/DL (70-110)
[2021-12-15] MEDS ORDERED: ONDANSETRON HCL 4 MG TABLET PO SCH (18:00)
[2021-12-15] MEDS ORDERED: ONDANSETRON HCL 4 MG TABLET PO PRN (18:00)
[2021-12-15 19:12] VITALS: BP 100/63
[2021-12-15] MEDS: ZOLPIDEM TARTRATE 5 MG TABLET PEG PRN (20:45)
[2021-12-16] VITALS (12 sets, daily range): BP systolic 88–107; BP diastolic 50–69
[2021-12-16 00:41] LABS: GLUCOMETER DEV NAME(LOC) 6N.1; GLUCOSE,POINT OF CARE 96 MG/DL (70-110)
[2021-12-16 00:42] LABS: GLUCOMETER DEV NAME(LOC) 6N.2B; GLUCOSE,POINT OF CARE 75 MG/DL (70-110)
[2021-12-16 07:11] LABS: GLUCOMETER DEV NAME(LOC) 6N.1; GLUCOSE,POINT OF CARE 75 MG/DL (70-110)
[2021-12-16] MEDS: HEPARIN SODIUM,PORCINE 5,000 UNITS/ML VIAL SQ SCH ×2 (08:00→15:50)
[2021-12-16] MEDS ORDERED: SODIUM CHLORIDE 0.9% 1,000 ML ONE (08:54)
[2021-12-16] MEDS: SCOPOLAMINE HYDROBROMIDE 1 MG/72 HOUR PATCH TD SCH (12:30)
[2021-12-16] MEDS ORDERED: HEPARIN SODIUM,PORCINE 1,000 UNITS/ML VIAL IVCATH ONE ×2 (13:00)
[2021-12-16] MEDS: SERTRALINE HCL 100 MG TABLET PEG SCH (13:06)
[2021-12-16] MEDS: VITAMIN B COMP/VIT C/FOLIC ACID CAPSULE PO SCH (13:06)
[2021-12-16] MEDS: THIAMINE 100 MG TABLET PEG SCH (13:07)
[2021-12-16] MEDS: LANSOPRAZOLE 30 MG SOLUBLE TABLET PEG SCH (13:08)
[2021-12-16] MEDS: DOCUSATE SODIUM 100 MG/10 ML LIQUID UDCUP PEG SCH (13:08)
[2021-12-16] MEDS ORDERED: SERT-440 PEG (13:20)
[2021-12-16] MEDS ORDERED: B CO1CAP6 PO (13:20)
[2021-12-16] MEDS ORDERED: SCOP1PAT12 TP (13:20)
[2021-12-16] MEDS ORDERED: ALBU8HFA IH (13:20)
[2021-12-16] MEDS ORDERED: LANS30CA53 PO (13:20)
[2021-12-16] MEDS ORDERED: THIA100T80 PEG (13:20)
[2021-12-16] MEDS: METOCLOPRAMIDE HCL 10 MG/10 ML SOLUTION ORAL.SYG PEG SCH (13:29)
[2021-12-16] MEDS: DOXERCALCIFEROL 4 MCG/2 ML VIAL IVP SCH (13:30)
[2021-12-16 16:16] LABS: GLUCOMETER DEV NAME(LOC) 6N.1; GLUCOSE,POINT OF CARE 80 MG/DL (70-110)
[2021-12-16] MEDS ORDERED: HEPARIN SODIUM,PORCINE 1,000 UNITS/ML VIAL IVP ONE (16:41)
[2021-12-16 22:07] LABS: GLUCOMETER DEV NAME(LOC) 6N.1; GLUCOSE,POINT OF CARE 74 MG/DL (70-110)
== END 2021-12-16 20:20 | disposition home health service (06) | DRG 720 ==
LOC: EMS 07:22 → 6S 11:38
PROVIDERS: ADMIT Internal Medicine; ATTEND Internal Medicine
PROC: 0DJ08ZZ Inspection of Upper Intestinal Tract, Via Natural or Artificial Opening Endoscopic (ICD-10-PCS; 2021-11-23)
PROC: 5A1D70Z Performance of Urinary Filtration, Intermittent, Less than 6 Hours Per Day (ICD-10-PCS; principal; 2021-11-24)
PROC: 5A1D70Z Performance of Urinary Filtration, Intermittent, Less than 6 Hours Per Day (ICD-10-PCS; 2021-11-26)
PROC: 5A1D70Z Performance of Urinary Filtration, Intermittent, Less than 6 Hours Per Day (ICD-10-PCS; 2021-11-29)
PROC: 5A1D70Z Performance of Urinary Filtration, Intermittent, Less than 6 Hours Per Day (ICD-10-PCS; 2021-12-01)
PROC: 5A1D70Z Performance of Urinary Filtration, Intermittent, Less than 6 Hours Per Day (ICD-10-PCS; 2021-12-03)
DX: A41.81 Sepsis due to Enterococcus (principal); I12.0 Hypertensive chronic kidney disease with stage 5 chronic kidney disease or end stage renal disease; E44.0 Moderate protein-calorie malnutrition; K22.2 Esophageal obstruction; E83.39 Other disorders of phosphorus metabolism; E83.51 Hypocalcemia; K94.23 Gastrostomy malfunction; N18.6 End stage renal disease; E66.01 Morbid (severe) obesity due to excess calories; J44.9 Chronic obstructive pulmonary disease, unspecified; E87.6 Hypokalemia; E16.2 Hypoglycemia, unspecified; D63.0 Anemia in neoplastic disease; C90.01 Multiple myeloma in remission; K21.00 Gastro-esophageal reflux disease with esophagitis, without bleeding; K29.80 Duodenitis without bleeding; K44.9 Diaphragmatic hernia without obstruction or gangrene; N25.0 Renal osteodystrophy; F32.A Depression, unspecified; Y84.8 Other medical procedures as the cause of abnormal reaction of the patient, or of later complication, without mention of misadventure at the time of the procedure; Z53.20 Procedure and treatment not carried out because of patient's decision for unspecified reasons; Z20.822 Contact with and (suspected) exposure to COVID-19; E83.42 Hypomagnesemia; I35.1 Nonrheumatic aortic (valve) insufficiency; Z99.2 Dependence on renal dialysis; Z86.718 Personal history of other venous thrombosis and embolism; Z92.21 Personal history of antineoplastic chemotherapy; Z98.84 Bariatric surgery status; Z74.01 Bed confinement status; Z91.040 Latex allergy status; Z88.8 Allergy status to other drugs, medicaments and biological substances; Z91.048 Other nonmedicinal substance allergy status; Z68.32 Body mass index [BMI] 32.0-32.9, adult; Y92.89 Other specified places as the place of occurrence of the external cause
CPT/HCPCS: 71045; 74177; 76000; 80048; 80053; 80202; 82962; 83605; 83690; 83735; 84100; 84484; 85025; 85610; 87040; 87070; 87077; 87081; 87186; 87205; 87340; 87481; 90935; 93005; 93306; 93312; 94640; 97110; 97162; 97167; 97530; 97535; 99285; J0636; J0885; J1200; J1270; J1644; J2250; J2270; J2405; J2704; J3010; J3370; J3480; J3490; J3535; J7030; J7040; J7050; J7060; J7120; J7131; Q0162; Q9967; 36415-L1; 36415-TC; J7613; X7700; Z7610

== ENCOUNTER 2022-02-07 14:00 | Emergency (ER) | payer OTHER ==
[~2022-02-07] VITALS: Ht 165.1 cm; Wt 78.0 kg
[~2022-02-07 14:00] MED LIST changes: +ALBU8HFA IH; +B CO1CAP6 PO; +BENZ-70 PO; +BISA10SU11 PR; +CALC0.2521 PO; -EPOE10003 SQ; +FOLI0.8T2 PO; -GUAIF10 GT; -IPRA4AER IH; -LACT1CAP81 PO; +LANS30CA53 PO; -LANS30CA56 GT; -MIDO5TAB29 GT; -PANT-31 GT; +SERT-440 PEG
[2022-02-07] MEDS ORDERED: ACETAMINOPHEN 500 MG TABLET PO ONE (14:30)
[2022-02-07 16:05] VITALS: BP 124/77
== END 2022-02-07 16:13 | disposition home or self-care (01) ==
LOC: EMS 14:03
DX: S09.8XXA Other specified injuries of head, initial encounter (principal); N18.6 End stage renal disease; F32.A Depression, unspecified; Z99.2 Dependence on renal dialysis; Z98.890 Other specified postprocedural states; Z91.040 Latex allergy status; Z88.8 Allergy status to other drugs, medicaments and biological substances; Z91.09 Other allergy status, other than to drugs and biological substances; W00.2XXA Other fall from one level to another due to ice and snow, initial encounter; Y93.89 Activity, other specified; Y92.89 Other specified places as the place of occurrence of the external cause; Y99.8 Other external cause status
CPT/HCPCS: 70450; 72125; 99284

== ENCOUNTER 2022-11-11 07:36 | Emergency (ER) | payer OTHER ==
[~2022-11-11] VITALS: Ht 165.1 cm; Wt 73.6 kg
[~2022-11-11 07:36] MED LIST changes: +ALBU18HF12 IH; -ALBU8HFA IH; -B CO1CAP6 PO; +BENZ-227 PO; -BENZ-70 PO; -SERT-162 GT
[2022-11-11 07:52] VITALS: TEMP 99.7
[2022-11-11] MEDS ORDERED: TraMADol HCL 50 MG TABLET PO ONE (08:15)
[2022-11-11] MEDS ORDERED: LIDOCAINE 5% TRANSDERMAL PATCH TD ONE (08:15)
[2022-11-11 08:29] LABS: HEMATOCRIT 33.7 % (36-46); HEMOGLOBIN 10.9 g/dL (12.0-16.0); MEAN CORPUSCULAR HEMOGLOBIN 32.6 pg (26.0-34.0); MEAN CORPUSCULAR HGB CONC 32.5 G/dL (31.0-37.0); MEAN CORPUSCULAR VOLUME 100 fL (80-100); PLATELET COUNT (AUTO) 291 K/uL (150-450); RED BLOOD CELL COUNT(AUTO) 3.35 MIL/uL (4.00-5.20); RED CELL DISTRIBUTION WIDTH 18.6 % (11.5-14.5); WHITE BLOOD COUNT (AUTO) 15.7 K/uL (4.5-11.0)
[2022-11-11 08:34] LABS: CALCIUM, TOTAL 9.2 mg/dL (8.8-10.5); CREATININE 11.35 mg/dL (0.60-1.30); POTASSIUM 4.8 mmol/L (3.5-5.1)
[2022-11-11 08:40] LABS: BILIRUBIN,TOTAL 0.4 mg/dL (0.1-1.0); TOTAL PROTEIN, SERUM 6.4 g/dL (6.4-8.2)
[2022-11-11 09:16] LABS: BAND NEUTROPHILS % (MANUAL) 9 % (0-5); LYMPHOCYTES % (MANUAL) 10 % (22-44); MONOCYTES % (MANUAL) 9 % (2-9); SEGMENTED NEUTROPHILS % 72 % (40-70); TOTAL CELLS COUNTED 100
[2022-11-11 09:50] VITALS: BP 128/62; PULSE 89; RESP 20
[2022-11-11] MEDS ORDERED: DOXY-354 PO (12:24)
[2022-11-11] MEDS ORDERED: LIDO700A15 TP (12:25)
[2022-11-11] MEDS ORDERED: TRAM-559 PO (12:25)
== END 2022-11-11 12:32 | disposition home or self-care (01) ==
LOC: EMS 07:36
DX: J18.9 Pneumonia, unspecified organism (principal); M54.9 Dorsalgia, unspecified; F32.A Depression, unspecified; N18.6 End stage renal disease; Z99.2 Dependence on renal dialysis; Z98.890 Other specified postprocedural states; Z91.040 Latex allergy status; Z88.8 Allergy status to other drugs, medicaments and biological substances
CPT/HCPCS: 72100; 73503; 74176; 80053; 85025; 99284

== ENCOUNTER 2023-04-26 05:56 | Emergency (ER) | payer OTHER ==
[~2023-04-26] VITALS: Ht 165.1 cm; Wt 77.3 kg
[~2023-04-26 05:56] MED LIST changes: +DOXY-354 PO; +LIDO700A15 TP; +TRAM-559 PO
[2023-04-26 06:07] VITALS: TEMP 98.4
[2023-04-26] MEDS: BENZOCAINE 20% 50 MCG/SPRAY 57 GM TP ONE (06:57)
[2023-04-26] MEDS: MAG HYDROX/ALUMINUM HYD/SIMETH ES 30 ML SUSPENSION UDCUP PO ONE (06:57)
[2023-04-26 07:45] VITALS: BP 157/82; PULSE 62; RESP 15
== END 2023-04-26 08:41 | disposition home or self-care (01) ==
LOC: EMS 05:57
DX: R13.10 Dysphagia, unspecified (principal); F32.A Depression, unspecified; Z98.890 Other specified postprocedural states
CPT/HCPCS: 99283

== ENCOUNTER 2023-05-08 09:17 | Emergency (ER) | payer OTHER ==
[~2023-05-08] VITALS: Ht 165.1 cm; Wt 109.1 kg
[2023-05-08] MEDS ORDERED: OMEP10 PO (09:34)
[2023-05-08] MEDS ORDERED: CHOL500043 PO (09:34)
[2023-05-08] MEDS ORDERED: CYAN-119 PO (09:34)
[2023-05-08] MEDS ORDERED: ONDA4TAB96 PO (09:34)
[2023-05-08 09:37] VITALS: BP 139/70; PULSE 86; RESP 18; TEMP 99.1
[2023-05-08] MEDS ORDERED: DOXY50 PO (10:07)
[2023-05-12] MEDS ORDERED: PERCT PO (17:02)
== END 2023-05-08 10:27 | disposition home or self-care (01) ==
LOC: EMS 09:17
DX: L08.9 Local infection of the skin and subcutaneous tissue, unspecified (principal); D64.9 Anemia, unspecified; F32.A Depression, unspecified; K21.9 Gastro-esophageal reflux disease without esophagitis; J18.9 Pneumonia, unspecified organism; N18.6 End stage renal disease; Z86.718 Personal history of other venous thrombosis and embolism; Z88.4 Allergy status to anesthetic agent; Z91.040 Latex allergy status
CPT/HCPCS: 99283; Z7502

== ENCOUNTER 2023-08-09 09:20 | Emergency (ER) | payer OTHER ==
[~2023-08-09] VITALS: Ht 165.1 cm; Wt 68.2 kg
[~2023-08-09 09:20] MED LIST changes: -BENZ-227 PO; -BISA10SU11 PR; -CALC0.2521 PO; +CHOL500043 PO; +CYAN-119 PO; -DOXY-354 PO; -FOLI0.8T2 PO; -IPRA3AMP24 NEB; -LANS30CA53 PO; -LIDO700A15 TP; +OMEP10CA38 PO; +PERCT PO; -SERT-440 PEG; -THIA100T80 GT; -TRAM-559 PO
[2023-08-09 09:24] VITALS: BP 116/76; PULSE 86; RESP 18; TEMP 98.2
[2023-08-09 09:29] LABS: COVID AG,FIA SOURCE NASAL SWAB
[2023-08-09 09:49] LABS: INFLUENZA TYPE A NEGATIVE FOR TYPE A (NEGATIVE); INFLUENZA TYPE B NEGATIVE FOR TYPE B (NEGATIVE); SARS-COV2 (COVID) ANTIGEN,FIA Negative (Negative)
[2023-08-09] MEDS ORDERED: AZIT250T9 PO (11:46)
== END 2023-08-09 12:01 | disposition home or self-care (01) ==
LOC: EMS 09:20
DX: J32.9 Chronic sinusitis, unspecified (principal); F32.A Depression, unspecified; Z98.890 Other specified postprocedural states; Z20.822 Contact with and (suspected) exposure to COVID-19
CPT/HCPCS: 87804; 99283

== ENCOUNTER 2023-11-26 17:15 | Inpatient (IN) | payer OTHER ==
[~2023-11-26] VITALS: Ht 170.2 cm; Wt 98.0 kg
[2023-11-26 19:25] LABS: BASOPHILS % (AUTO) 0.8 % (0.0-2.0); EOSINOPHILS % (AUTO) 1.8 % (1.0-6.0); HEMATOCRIT 35.5 % (36-46); MEAN CORPUSCULAR HEMOGLOBIN 32.2 pg (26.0-34.0); MEAN CORPUSCULAR VOLUME 104 fL (80-100); MONOCYTES # (AUTO) 1.1 K/uL (0.1-1.0); MONOCYTES % (AUTO) 14.2 % (2.0-9.0); NEUTROPHILS # (AUTO) 5.2 K/uL (1.8-7.7); NEUTROPHILS % (AUTO) 69.2 % (40.0-70.0); PLATELET COUNT (AUTO) 153 K/uL (150-450); RED BLOOD CELL COUNT(AUTO) 3.42 MIL/uL (4.00-5.20); RED CELL DISTRIBUTION WIDTH 17.8 % (11.5-14.5); WHITE BLOOD COUNT (AUTO) 7.5 K/uL (4.5-11.0)
[2023-11-26 19:42] LABS: TROPONIN I-HIGH SENSITIVITY 40 ng/L (<51)
[2023-11-26 21:25] LABS: ALBUMIN 2.7 g/dL (3.4-5.0); BILIRUBIN,DIRECT 0.3 mg/dL (0.00-0.20); BILIRUBIN,TOTAL 0.6 mg/dL (0.1-1.0); CALCIUM, TOTAL 8.8 mg/dL (8.8-10.5); CREATININE 9.28 mg/dL (0.60-1.30); TOTAL PROTEIN, SERUM 5.9 g/dL (6.4-8.2)
[2023-11-26 21:29] LABS: POTASSIUM 6.4 mmol/L (3.5-5.1)
[2023-11-26] MEDS ORDERED: 0.9% SODIUM CHLORIDE 5 ML NEB SOLUTION NEB ONE (21:41)
[2023-11-26] MEDS: OxyCODONE HCL/ACETAMINOPHEN 5-325 MG TABLET PO ONE (21:48)
[2023-11-26] MEDS: ALBUTEROL SULFATE 2.5 MG/0.5 ML NEB SOLUTION NEB ONE (21:48)
[2023-11-26] MEDS: CALCIUM GLUCONATE 100 MG/ML 10 ML IVP ONE (22:05)
[2023-11-26 22:08] VITALS: PULSE 77; RESP 20; O2SAT 96
[2023-11-26] MEDS: SODIUM ZIRCONIUM CYCLOSILICATE 5 GM POWDER PACKET PO ONE (22:23)
[2023-11-27] VITALS (18 sets, daily range): BP systolic 93–159; BP diastolic 65–100; PULSE 73–88; RESP 17–19; TEMP 97.2–98.6; O2SAT 93–97
[2023-11-27] MEDS: HEPARIN SODIUM,PORCINE 5,000 UNITS/ML VIAL SQ SCH (00:11)
[2023-11-27] MEDS: BUMETANIDE 0.25 MG/ML 4 ML VIAL IVP ONE (00:40)
[2023-11-27] MEDS ORDERED: HydrALAZINE HCL 20 MG/ML VIAL IVP PRN (01:30)
[2023-11-27] MEDS: AmLODIPine BESYLATE 10 MG TABLET PO SCH (01:54)
[2023-11-27] MEDS: ONDANSETRON HCL 4 MG/2 ML VIAL IVP PRN (02:28)
[2023-11-27] MEDS: ALBUTEROL SULFATE HFA 90 MCG/PUFF 8 GM INHALER IH PRN (03:52)
[2023-11-27 06:57] LABS: BASOPHILS % (AUTO) 0.3 % (0.0-2.0); EOSINOPHILS % (AUTO) 1.7 % (1.0-6.0); HEMATOCRIT 37.9 % (36-46); HEMOGLOBIN 11.7 g/dL (12.0-16.0); LYMPHOCYTES # (AUTO) 1.4 K/uL (1.0-4.8); LYMPHOCYTES % (AUTO) 15.9 % (22.0-44.0); MEAN CORPUSCULAR HEMOGLOBIN 32.1 pg (26.0-34.0); MEAN CORPUSCULAR VOLUME 104 fL (80-100); MONOCYTES # (AUTO) 1.4 K/uL (0.1-1.0); NEUTROPHILS # (AUTO) 5.7 K/uL (1.8-7.7); NEUTROPHILS % (AUTO) 66.1 % (40.0-70.0); PLATELET COUNT (AUTO) 152 K/uL (150-450); RED BLOOD CELL COUNT(AUTO) 3.66 MIL/uL (4.00-5.20); RED CELL DISTRIBUTION WIDTH 18.4 % (11.5-14.5); WHITE BLOOD COUNT (AUTO) 8.6 K/uL (4.5-11.0)
[2023-11-27 07:09] LABS: CALCIUM, TOTAL 9.3 mg/dL (8.8-10.5); CREATININE 9.01 mg/dL (0.60-1.30); MAGNESIUM 2.5 mg/dL (1.80-2.40)
[2023-11-27 07:11] LABS: POTASSIUM 6.3 mmol/L (3.5-5.1)
[2023-11-27 08:05] LABS: RBC MORPHOLOGY COMMENT ABNORMAL RBC MORPH
[2023-11-27] MEDS: OMEPRAZOLE 20 MG CAPSULE PO SCH (08:11)
[2023-11-27] MEDS: SODIUM ZIRCONIUM CYCLOSILICATE 5 GM POWDER PACKET PO ONE (11:05)
[2023-11-27] MEDS ORDERED: OXYC1TAB6 PO (11:32)
[2023-11-27] MEDS ORDERED: LIDOCAINE/PF 1% 2 ML VIAL ONE (12:00)
[2023-11-27] MEDS ORDERED: 0.9% SODIUM CHLORIDE 10 ML SYRINGE IVP ONE (17:35)
[2023-11-27] MEDS ORDERED: IOHEXOL 300 MG/ML 100 ML VIAL ONE (17:35)
[2023-11-27] MEDS ORDERED: SODIUM CHLORIDE 0.9% 100 ML ONE (17:35)
[2023-11-27] MEDS: MORPHINE SULFATE 2 MG/ML SYRINGE IVP ONE (18:18)
[2023-11-27] MEDS: FOLIC ACID/VIT B COMPLEX AND C TABLET PO SCH (18:22)
[2023-11-27] MEDS: METOPROLOL TARTRATE 25 MG TABLET PO SCH (21:20)
[2023-11-28 04:18] VITALS: BP 99/57; PULSE 87; RESP 19; TEMP 97.8; O2SAT 96
[2023-11-28] MEDS: LANTHANUM CARBONATE 500 MG CHEW TABLET PO SCH (05:19)
[2023-11-28 07:26] VITALS: BP 129/74; PULSE 88; RESP 18; TEMP 97.8; O2SAT 95
== END 2023-11-28 10:00 | disposition left against medical advice (07) | DRG 466 ==
LOC: EMS 17:15 → EDH 23:47 → 5N 11-27 02:09
PROVIDERS: ADMIT Internal Medicine; ATTEND Internal Medicine
PROC: 5A1D70Z Performance of Urinary Filtration, Intermittent, Less than 6 Hours Per Day (ICD-10-PCS; principal; 2023-11-27)
DX: T82.510A Breakdown (mechanical) of surgically created arteriovenous fistula, initial encounter (principal); N18.6 End stage renal disease; I50.41 Acute combined systolic (congestive) and diastolic (congestive) heart failure; D63.1 Anemia in chronic kidney disease; E83.39 Other disorders of phosphorus metabolism; I13.2 Hypertensive heart and chronic kidney disease with heart failure and with stage 5 chronic kidney disease, or end stage renal disease; E87.5 Hyperkalemia; I16.1 Hypertensive emergency; K21.9 Gastro-esophageal reflux disease without esophagitis; J44.9 Chronic obstructive pulmonary disease, unspecified; E66.9 Obesity, unspecified; F32.A Depression, unspecified; Y71.2 Prosthetic and other implants, materials and accessory cardiovascular devices associated with adverse incidents; Z53.29 Procedure and treatment not carried out because of patient's decision for other reasons; Z68.38 Body mass index [BMI] 38.0-38.9, adult; Z88.1 Allergy status to other antibiotic agents; Z99.2 Dependence on renal dialysis; Y92.89 Other specified places as the place of occurrence of the external cause
CPT/HCPCS: 71045; 74176; 80048; 80076; 83690; 83735; 83880; 84484; 85025; 87340; 90935; 93005; 93306; 99285; G0378; J0610; J1644; J2270; J2405; J3490; J3535; J7050; Q9967; 36415-L1; 36415-TC; J7613